=== PATIENT | male | born 1950 | race Caucasian/White ===

== ENCOUNTER → 2016-08-29 | Outpatient (CLI) | payer OTHER, BC | LOC: BHFA 13:15 | PROVIDERS: ATTEND Internal Medicine Cardiovascular Disease | DX: I10 Essential (primary) hypertension (principal); E78.5 Hyperlipidemia, unspecified ==

== ENCOUNTER 2017-04-03 09:19 | Day surgery (SDC) | payer OTHER, BC ==
--- NOTE | 2017-04-03 10:36 | PDGENHP ---
History & Physical Chief Complaint: Left >right leg pain History of Present Illness: Back pain < left leg pain. 11/04 severity. Left leg severely weak, needs walker to ambulate short distances. 5 back operations, most recently November 05, [address] Gibbs in [place]. Allergy: penicillin. Relevant Physical Exam: Abnormal MRI [facility] [place] Cardiorespiratory Assessment: Lungs clear to auscultation. Heart: RRR, no murmur; 84 bpm.
[2017-04-03] MEDS ORDERED: fentaNYL 100 MCG/2 ML INJ IVP PRN (10:37)
[2017-04-03] MEDS ORDERED: PROTAMINE SULFATE 50 MG/5 ML VIAL IVP PRN (10:37)
[2017-04-03] MEDS ORDERED: FLUMAZENIL 0.5 MG/5 ML MDV IVP PRN (10:37)
[2017-04-03] MEDS ORDERED: GLUCAGON HCL 1 MG VIAL IVP PRN (10:37)
[2017-04-03] MEDS ORDERED: MIDAZOLAM 2 MG/2 ML VIAL IVP PRN (10:37)
[2017-04-03] MEDS ORDERED: HEPARIN 10,000 UNIT/10 ML MDV IVP PRN (10:37)
[2017-04-03] MEDS ORDERED: NALOXONE HCL 0.4 MG/ML INJ IVP PRN (10:37)
[2017-04-03] MEDS ORDERED: ALTEPLASE 2 MG VIAL IVP PRN (10:37)
--- NOTE | 2017-04-03 10:39 | PDPROPOC ---
Sedation Plan of Care Sedation Plan of Care: vital signs stable, mental status noted, patient educated of risks, benefits, alternatives, patient can tolerate sedation ASA Classification: ASA 3 Planned drugs: fentanyl, midazolam Mallampati Score: Class 3 Mallampati Reference Image: Patient passed 3-3-2 rule?: Yes
[2017-04-03] MEDS ORDERED: NS 1,000 ML IV SCH (10:45)
[2017-04-03] MEDS ORDERED: MIDAZOLAM 2 MG/2 ML VIAL ONE (10:45)
[2017-04-03] MEDS ORDERED: fentaNYL 100 MCG/2 ML INJ ONE (10:45)
[2017-04-03] MEDS ORDERED: HYDROmorphONE/DILAUDID 2 MG/ML INJ ONE (11:24)
[2017-04-03] MEDS ORDERED: IOPAMIDOL (ISOVUE-M 300) 15 ML VIAL ONE (12:09)
[2017-04-03 12:41] VITALS: PULSE 80; RESP 15
[2017-04-03] MEDS ORDERED: ONDANSETRON 4 MG/2 ML VIAL IVP PRN (13:16)
--- NOTE | 2017-04-03 13:19 | PDRADPN ---
Radiology Procedure Note Date of Procedure: 04/03/17 Radiologist: Rick Lehman Anesthesia: IV Sedation Pre-op Diagnosis: Abnormal L5-S1 Post-op Diagnosis: Same Indication: Possible osteomyelitis Procedure: Core needle biopsy and aspiration, L5-S1 Finding(s): Tissue obtained Inf/Abcess present in the surg proc area at time of surgery?: No EBL: Minimal Complications: 0 Specimen(s): Multiple cores and aspirates obtained for microbiology and histology.
[2017-04-03 13:42] VITALS: O2SAT 93
[2017-04-03 14:07] VITALS: BP 134/78; TEMP 98.3
== END 2017-04-03 14:13 | disposition home or self-care (01) ==
LOC: FIMAGING 09:19
PROVIDERS: ATTEND Radiology Diagnostic Radiology
PROC: BR1 Imaging, Axial Skeleton, Except Skull and Facial Bones, Fluoroscopy (ICD-10-PCS; principal; 2017-04-03 12:26)
PROC: 0QB13ZX Excision of Sacrum, Percutaneous Approach, Diagnostic (ICD-10-PCS; principal; 2017-04-03 12:26)
PROC: 0S9 Lower Joints, Drainage (ICD-10-PCS; principal; 2017-04-03 12:26)
DX: M46.20 Osteomyelitis of vertebra, site unspecified (principal); M46.46 Discitis, unspecified, lumbar region
CPT/HCPCS: J1170; J2250; J3010; Q9967

== ENCOUNTER 2017-04-05 18:38 | Inpatient (IN) | payer OTHER, BC ==
--- NOTE | 2017-04-05 19:20 | EDPHY ---
H & P Time Seen by Provider: 04/05/17 19:15 HPI/ROS: Chief complaint. Possible back infection HPI. 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 He had residual weakness and altered sensation of the left leg. Because of continued pain he had bilateral SI joints injected a weeks ago. There has been increasing concern for infection. Apparently patient had his back aspirated and it grew Pseudomonas. He has had night sweats and weight loss. MRI in early February showed bone marrow edema and osteolysis surrounding the L5-S1 intervertebral disc space with suspicion for hardware failure. It was highly suspicious or osteomyelitis. Patient is here for further evaluation and admission. He knows continuing weakness to his left thigh. He has radicular pain to the left leg. He has bilateral low back pain and hip pain ROS Constitutional. No fever or chills but weight loss and fatigue Eyes. no problems with vision ENT. no sore throat, no nasal drainage Cardiovascular. no chest pain Respiratory. no shortness of breath, no cough Abdominal. no abdominal pain, no nausea/vomiting, no diarrhea . no problems urinating MS. Low back pain with bilateral hip pain. Skin. no rash Lymph. no swollen glands Neuro. Radicular pain left leg and weakness to left thigh Past Medical/Surgical History: Surgery on his back in September. Other medical problems include diabetes, hypertension, dyslipidemia Social History: , nonsmoker, no alcohol Smoking Status: Former smoker Physical Exam: General Appearance: Alert well-developed male moderate distress vital signs are stay Eyes: Pupils equal and round no pallor or injection. ENT, Mouth: Mucous membranes are moist. Respiratory: There are no retractions, lungs are clear to auscultation. Cardiovascular: Regular rate and rhythm. Gastrointestinal: Abdomen is soft and nontender, no masses, bowel sounds normal. Neurological: Awake and alert, sensory and motor exams grossly normal. Skin: Healed surgical sedation is to the low back and abdomen Musculoskeletal: Neck is supple nontender. Discomfort to palpation across the lumbar spine and both SI joints Extremities symmetrical, full range of motion. Psychiatric: Patient is oriented X 3, there is no agitation. Constitutional: Initial Vital Signs Temperature (C) 36.3 C 04/05/17 18:50 Heart Rate 90 04/05/17 18:50 Respiratory Rate 18 04/05/17 18:50 Blood Pressure 141/92 H 04/05/17 18:50 O2 Sat (%) 95 04/05/17 18:50 O2 Delivery Mode Room Air Allergies/Adverse Reactions: Penicillins Allergy (Mild, Verified 04/05/17 18:48) Rash Home Medications: Medication Instructions Recorded Aspirin 81 mg DAILY 04/01/17 CO Q-10 DAILY 04/01/17 Fiber Powder DAILY 04/01/17 Fish Oil 1,000 mg Capsule DAILY 04/01/17 Gabapentin 300 mg DAILY 04/01/17 Iron 325 mg TUTHSA 04/01/17 Lasix 20 mg BID 04/01/17 Laxative 5 mg TID 04/01/17 Lipitor 20 mg DAILY 04/01/17 Melatonin 5 mg HS PRN 04/01/17 Ms Contin 30 mg Q8 PRN 04/01/17 Multi-Vitamin Daily DAILY 04/01/17 Nasal [place] DAILY PRN 04/01/17 Percocet 5-325 mg Tablet Q4 PRN 04/01/17 Protonix 40 mg DAILY 04/01/17 Robaxin 750 mg (*) Q8 PRN 04/01/17 Tylenol 325 mg BID PRN 04/01/17 VITAMIN D DAILY 04/01/17 Voltaren 0.1% (*) DAILY 04/01/17 Zoloft 50mg (*) BID 04/01/17 Etodolac 500 mg PO BID 04/03/17 Azelastine 04/05/17 ETODOLAC 04/05/17 FEXOFENADINE HCL 04/05/17 Medical Decision Making Procedures: IV normal saline. Pain for pain. The blood cultures. Cefepime IV following cultures ED Course/Re-evaluation: Patient continues to have pain after the morphine. He is given IV Dilaudid which controls his pain. After blood cultures are obtained he is given cefepime IV. On re-evaluation patient remained stable. The patient, his , and I discussed imaging and lab results. We discussed treatment plan including recommendation for admission. They expressed understanding and agreement I consulted and discussed the case with Dr. Peng, hospitalist, who agrees to the admission I had previously discussed the case with Dr. Bell , infectious Disease, who recommends admission Differential Diagnosis: Likely this patient has infected hardware in his back. I have considered epidural abscess as well. He had an aspiration 2 days ago that grew Pseudomonas. I have considered sepsis. - Data Points Laboratory Results: Laboratory Results 04/05/17 19:35 04/05/17 19:35 04/05/17 04/05/17 04/05/17 19:50 19:35 19:35 WBC RBC Hgb Hct MCV MCH MCHC RDW Plt Count MPV Neut % (Auto) Lymph % (Auto) [place] % (Auto) Eos % (Auto) Baso % (Auto) Nucleat RBC Rel Count Absolute Neuts (auto) Absolute Lymphs (auto) Absolute Monos (auto) Absolute Eos (auto) Absolute Basos (auto) Absolute Nucleated RBC Immature Gran % Immature Gran # Platelet Estimate Hypochromasia Microcytic Cells ESR PT 14.9 SEC SEC (12.0-15.0) INR 1.15 (0.83-1.16) APTT 32.3 SEC SEC (23.0-38.0) VBG Lactic Acid 1.8 mmol/L mmol/L (0.7-2.1) Sodium 137 mEq/L mEq/L (134-144) Potassium 3.7 mEq/L mEq/L (3.5-5.2) Chloride 98 mEq/L mEq/L (97-110) Carbon Dioxide 24 mEq/l mEq/l (22-31) Anion Gap 15 mEq/L mEq/L (8-16) BUN 12 mg/dL mg/dL (7-23) Creatinine 0.7 mg/dL mg/dL (0.7-1.3) Estimated GFR > 60 Glucose 93 mg/dL mg/dL (70-100) Calcium 10.6 mg/dL H mg/dL (8.5-10.4) Total Bilirubin 0.9 mg/dL mg/dL (0.1-1.4) C-Reactive Protein 31.3 mg/L H mg/L (<10.0) 04/05/17 19:35 WBC 8.86 10^3/uL 10^3/uL (3.80-9.50) RBC 5.77 10^6/uL 10^6/uL (4.40-6.38) Hgb 14.6 g/dL g/dL (13.7-17.5) Hct 45.1 % % (40.0-51.0) MCV 78.2 fL L fL (81.5-99.8) MCH 25.3 pg L pg (27.9-34.1) MCHC 32.4 g/dL g/dL (32.4-36.7) RDW 21.2 % H % (11.5-15.2) Plt Count 246 10^3/uL 10^3/uL (150-400) MPV 8.6 fL L fL (8.7-11.7) Neut % (Auto) 79.6 % H % (39.3-74.2) Lymph % (Auto) 10.5 % L % (15.0-45.0) Lake % (Auto) 8.8 % % (4.5-13.0) Eos % (Auto) 0.5 % L % (0.6-7.6) Baso % (Auto) 0.3 % % (0.3-1.7) Nucleat RBC Rel Count 0.0 % % (0.0-0.2) Absolute Neuts (auto) 7.05 10^3/uL H 10^3/uL (1.70-6.50) Absolute Lymphs (auto) 0.93 10^3/uL L 10^3/uL (1.00-3.00) Absolute Monos (auto) 0.78 10^3/uL 10^3/uL (0.30-0.80) Absolute Eos (auto) 0.04 10^3/uL 10^3/uL (0.03-0.40) Absolute Basos (auto) 0.03 10^3/uL 10^3/uL (0.02-0.10) Absolute Nucleated RBC 0.00 10^3/uL 10^3/uL (0-0.01) Immature Gran % 0.3 % % (0.0-1.1) Immature Gran # 0.03 10^3/uL 10^3/uL (0.00-0.10) Platelet Estimate ADEQUATE (ADEQ) Hypochromasia 2+ H Microcytic Cells 2+ H ESR 9 MM/HR MM/HR (0-20) PT INR APTT VBG Lactic Acid Sodium Potassium Chloride Carbon Dioxide Anion Gap BUN Creatinine Estimated GFR Glucose Calcium Total Bilirubin C-Reactive Protein Medications Given: Discontinued Medications Hydromorphone HCl (Dilaudid) 0.5 mg IVP EDNOW ONE Stop: 04/05/17 20:47 Last Admin: 04/05/17 20:50 Dose: 0.5 mg Cefepime HCl 2 gm/ Dextrose 100 mls @ 200 mls/hr IV EDNOW ONE PRN Reason: Protocol Stop: 04/05/17 20:01 Last Admin: 04/05/17 19:58 Dose: 100 mls Sodium Chloride (Ns) 2,000 mls @ 4,000 mls/hr 30 ml/kg infuse over 30 min ( 2000 ml) IV EDNOW ONE PRN Reason: Protocol Stop: 04/05/17 20:01 Last Admin: 04/05/17 19:49 Dose: 2,000 mls Morphine Sulfate (Morphine) 4 mg IVP EDNOW ONE Stop: 04/05/17 20:07 Last Admin: 04/05/17 20:10 Dose: 4 mg Departure - Departure Disposition: [facility] Acute Clinical Impression: Back pain Qualifiers: Back pain location: low back pain Chronicity: acute Back pain laterality: bilateral Sciatica presence: with sciatica Sciatica laterality: sciatica of left side Qualified Code(s): M54.42 - Lumbago with sciatica, left side Condition: Fair
[2017-04-05] MEDS ORDERED: NS 2,000 ML IV ONE (19:32)
[2017-04-05] MEDS ORDERED: CEFEPIME HCL 2 GM in D5W 100 ML IV ONE (19:32)
[2017-04-05 19:49] LABS: % IMMATURE GRANULYOCYTES 0.3 % (0.0-1.1); ABSOLUTE IMMATURE GRANULOCYTES 0.03 10^3/uL (0.00-0.10); ADD DIFF? NO; ADD MORPH? YES; ADD SCAN? NO; ATYPICAL LYMPHOCYTE FLAG 0 (0-99); FRAGMENT RBC FLAG 0 (0-99); HEMATOCRIT 45.1 % (40.0-51.0); HEMOGLOBIN 14.6 g/dL (13.7-17.5); LEFT SHIFT FLG 0 (0-99); LIPEMIA HEMOLYSIS FLAG 80 (0-99); MEAN CELL HEMOGLOBIN 25.3 pg (27.9-34.1); MEAN CELL HEMOGLOBIN CONCENTR. 32.4 g/dL (32.4-36.7); MEAN CELL VOLUME 78.2 fL (81.5-99.8); MEAN PLATELET VOLUME 8.6 fL (8.7-11.7); PLATELET CLUMPS FLAG 20 (0-99); PLATELET COUNT 246 10^3/uL (150-400); RED BLOOD CELL COUNT 5.77 10^6/uL (4.40-6.38)
[2017-04-05 19:59] LABS: ANION GAP 15 mEq/L (8-16); BILIRUBIN,TOTAL 0.9 mg/dL (0.1-1.4); C-REACTIVE PROTEIN 31.3 mg/L (<10.0); CALCIUM 10.6 mg/dL (8.5-10.4); CARBON DIOXIDE 24 mEq/l (22-31); CHLORIDE 98 mEq/L (97-110); CREATININE 0.7 mg/dL (0.7-1.3); GLOMERULAR FILTRATION RATE > 60; GLUCOSE 93 mg/dL (70-100); POTASSIUM 3.7 mEq/L (3.5-5.2); SODIUM 137 mEq/L (134-144)
[2017-04-05 20:01] LABS: INR 1.15 (0.83-1.16); PROTIME(PATIENT) 14.9 SEC (12.0-15.0)
[2017-04-05 20:02] LABS: APTT 32.3 SEC (23.0-38.0)
[2017-04-05 20:04] LABS: RED CELL DISTRIBUTION WIDTH 21.2 % (11.5-15.2)
[2017-04-05 20:05] LABS: SEDIMENTATION RATE 9 MM/HR (0-20)
[2017-04-05 20:21] LABS: HYPOCHROMIA 2+; MICROCYTES 2+; PLATELET ESTIMATE ADEQUATE (ADEQ)
[2017-04-05] MEDS ORDERED: HYDROmorphONE/DILAUDID 1 MG/ML INJ IVP ONE (20:46)
[2017-04-05] MEDS ORDERED: GADOBUTROL 10 ML VIAL IVP ONE (22:01)
[2017-04-05] MEDS ORDERED: ONDANSETRON 4 MG/2 ML VIAL IVP PRN (22:20)
[2017-04-05] MEDS ORDERED: ONDANSETRON DISINTEGRATING 4 MG TAB PO PRN (22:20)
[2017-04-05] MEDS ORDERED: HYDROmorphONE/DILAUDID 1 MG/ML INJ ONE (22:43)
[2017-04-05] MEDS: HYDROmorphONE/DILAUDID 1 MG/ML INJ IVP PRN (22:45)
[2017-04-06] MEDS: oxyCODONE IR 5 MG TAB PO PRN ×3 (00:18→14:49)
--- NOTE | 2017-04-06 00:31 | PDGENHP ---
History and Physical - Chief Complaint Back pain - History of Present Illness 67 yo M w/ complicated recent surgical course presents at request of infectious disease team. Patient underwent several spinal surgeries in September of this year. This process was complicated and required a revision on November 05 due to pain and leg weakness resulting from the surgery. These procedures were performed by Dr. Gibbs in [place]. Since, he has continued to struggle with ongoing back pain and L leg weakness. As a result of ongoing symptoms, he has had several MRI 's, the most recent of which showed concern for possible osteomyelitis in L5- S1 region. He had a core needle biopsy and aspiration of this area on 04/03. Gram stain from this resulted with Pseudomonas so patient was asked to come in for further evaluation. History Information - Allergies/Home Medication List Allergies/Adverse Reactions: Penicillins Allergy (Mild, Verified 04/05/17 18:48) Rash Home Medications: Aspirin 81 mg DAILY 04/01/17 [Last Taken 04/01/17] CO Q-10 DAILY 04/01/17 [Last Taken 04/02/17] Fiber Powder DAILY 04/01/17 [Last Taken 04/02/17] Fish Oil 1,000 mg Capsule DAILY 04/01/17 [Last Taken 04/03/17] Gabapentin 300 mg DAILY 04/01/17 [Last Taken 04/02/17] Iron 325 mg TUTHSA 04/01/17 [Last Taken 04/02/17] Lasix 20 mg BID 04/01/17 [Last Taken 04/02/17] Laxative 5 mg TID 04/01/17 [Last Taken 04/02/17] Lipitor 20 mg DAILY 04/01/17 [Last Taken 04/02/17] Melatonin 5 mg HS PRN 04/01/17 [Last Taken Unknown] Ms Contin 30 mg Q8 PRN 04/01/17 [Last Taken 04/03/17 06:00] Multi-Vitamin Daily DAILY 04/01/17 [Last Taken 04/02/17] Nasal [place] DAILY PRN 04/01/17 [Last Taken 04/03/17] Percocet 5-325 mg Tablet Q4 PRN 04/01/17 [Last Taken 04/03/17 04:00] Protonix 40 mg DAILY 04/01/17 [Last Taken 04/03/17 04:00] Robaxin 750 mg (*) Q8 PRN 04/01/17 [Last Taken 04/02/17] Tylenol 325 mg BID PRN 04/01/17 [Last Taken 04/02/17] VITAMIN D DAILY 04/01/17 [Last Taken 04/02/17] Voltaren 0.1% (*) DAILY 04/01/17 [Last Taken 04/02/17] Zoloft 50mg (*) BID 04/01/17 [Last Taken 04/03/17 06:00] Etodolac 500 mg PO BID 04/03/17 [Last Taken 04/02/17] Azelastine 04/05/17 [Last Taken Unknown] ETODOLAC 04/05/17 [Last Taken Unknown] FEXOFENADINE HCL 04/05/17 [Last Taken Unknown] I have personally reviewed and updated: family history, medical history - Past Medical History arthritis, diabetes type 2, hypertension - Surgical History Reports: spinal surgery Additional surgical history: September and October 2016 - Family History Positive for: cancer, diabetes type II - Social History Smoking Status: Former smoker Review of Systems Review of Systems: ROS: 10pt was reviewed & negative except for what was stated in HPI & below Physical Exam Physical Exam: Temp Pulse Resp BP Pulse Ox 36.7 C 80 16 168/89 H 95 04/05/17 23:32 04/05/17 23:32 04/05/17 23:32 04/05/17 23:32 04/05/17 23:32 Constitutional: no apparent distress, not in pain Eyes: PERRL, EOMI Ears, Nose, Mouth, Throat: moist mucous membranes, no oral mucosal ulcers Cardiovascular: regular rate and rhythym, no murmur, rub, or gallop Respiratory: no respiratory distress, no rales or rhonchi Gastrointestinal: normoactive bowel sounds, soft, non-tender abdomen Skin: warm, normal color Musculoskeletal: full muscle strength, no muscle tenderness, no joint effusions Neurologic: AAOx3, CN II-XII Intact Psychiatric: interacting appropriately, not anxious Lab Data & Imaging Review 04/05/17 19:35 04/05/17 19:35 WBC 8.86 10^3/uL (3.80-9.50) 04/05/17 19:35 RBC 5.77 10^6/uL (4.40-6.38) 04/05/17 19:35 Hgb 14.6 g/dL (13.7-17.5) 04/05/17 19:35 Hct 45.1 % (40.0-51.0) 04/05/17 19:35 MCV 78.2 fL (81.5-99.8) L 04/05/17 19:35 MCH 25.3 pg (27.9-34.1) L 04/05/17 19:35 MCHC 32.4 g/dL (32.4-36.7) 04/05/17 19:35 RDW 21.2 % (11.5-15.2) H 04/05/17 19:35 Plt Count 246 10^3/uL (150-400) 04/05/17 19:35 MPV 8.6 fL (8.7-11.7) L 04/05/17 19:35 Neut % (Auto) 79.6 % (39.3-74.2) H 04/05/17 19:35 Lymph % (Auto) 10.5 % (15.0-45.0) L 04/05/17 19:35 [place] % (Auto) 8.8 % (4.5-13.0) 04/05/17 19:35 Eos % (Auto) 0.5 % (0.6-7.6) L 04/05/17 19:35 Baso % (Auto) 0.3 % (0.3-1.7) 04/05/17 19:35 Nucleat RBC Rel Count 0.0 % (0.0-0.2) 04/05/17 19:35 Absolute Neuts (auto) 7.05 10^3/uL (1.70-6.50) H 04/05/17 19:35 Absolute Lymphs (auto) 0.93 10^3/uL (1.00-3.00) L 04/05/17 19:35 Absolute Monos (auto) 0.78 10^3/uL (0.30-0.80) 04/05/17 19:35 Absolute Eos (auto) 0.04 10^3/uL (0.03-0.40) 04/05/17 19:35 Absolute Basos (auto) 0.03 10^3/uL (0.02-0.10) 04/05/17 19:35 Absolute Nucleated RBC 0.00 10^3/uL (0-0.01) 04/05/17 19:35 Immature Gran % 0.3 % (0.0-1.1) 04/05/17 19:35 Immature Gran # 0.03 10^3/uL (0.00-0.10) 04/05/17 19:35 Platelet Estimate ADEQUATE (ADEQ) 04/05/17 19:35 Hypochromasia 2+ H 04/05/17 19:35 Microcytic Cells 2+ H 04/05/17 19:35 ESR 9 MM/HR (0-20) 04/05/17 19:35 PT 14.9 SEC (12.0-15.0) 04/05/17 19:35 INR 1.15 (0.83-1.16) 04/05/17 19:35 APTT 32.3 SEC (23.0-38.0) 04/05/17 19:35 VBG Lactic Acid 1.8 mmol/L (0.7-2.1) 04/05/17 19:50 Sodium 137 mEq/L (134-144) 04/05/17 19:35 Potassium 3.7 mEq/L (3.5-5.2) 04/05/17 19:35 Chloride 98 mEq/L (97-110) 04/05/17 19:35 Carbon Dioxide 24 mEq/l (22-31) 04/05/17 19:35 Anion Gap 15 mEq/L (8-16) 04/05/17 19:35 BUN 12 mg/dL (7-23) 04/05/17 19:35 Creatinine 0.7 mg/dL (0.7-1.3) 04/05/17 19:35 Estimated GFR > 60 04/05/17 19:35 Glucose 93 mg/dL (70-100) 04/05/17 19:35 Calcium 10.6 mg/dL (8.5-10.4) H 04/05/17 19:35 Total Bilirubin 0.9 mg/dL (0.1-1.4) 04/05/17 19:35 C-Reactive Protein 31.3 mg/L (<10.0) H 04/05/17 19:35 Assessment & Plan Assessment: 67 yo M with hx of multiple complications presents after gram stain from recent spinal aspirate is growing Pseudomonas. Plan: 1. Hx of spinal hardware placement c/b possible infection - Core needle biopsy and aspirate performed (L5/S1) by Dr. Lehman on 04/03. Gram stain from this sample is growing Pseudomonas aeurigonosa. Patient does not have any systemic symptoms of infection at this time. CRP elevated at 31. - Repeat lumbar spine MRI - Blood cultures obtained - Cefepime 2g IV q8h - Infectious disease consult - Will maintain NPO pending results of MRI in case he needs surgical intervention 2. Chronic back pain - As a result of above procedures; takes Ms Contin 30 mg q8h as well as percocet 5/325 mg PRN. 3. T2DM - Patient claims this is diet controlled and does not take medications. Diet - NPO @ PR Code - Full Ppx - SCDs Dispo - Admit to inpatient status noting need for further evaluation and IV antibiotics.
[2017-04-06 05:13] LABS: % IMMATURE GRANULYOCYTES 0.4 % (0.0-1.1); ABSOLUTE IMMATURE GRANULOCYTES 0.03 10^3/uL (0.00-0.10); ADD DIFF? NO; ADD MORPH? YES; ADD SCAN? NO; ATYPICAL LYMPHOCYTE FLAG 0 (0-99); FRAGMENT RBC FLAG 0 (0-99); HEMATOCRIT 39.3 % (40.0-51.0); HEMOGLOBIN 12.3 g/dL (13.7-17.5); LEFT SHIFT FLG 0 (0-99); LIPEMIA HEMOLYSIS FLAG 80 (0-99); MEAN CELL HEMOGLOBIN 24.7 pg (27.9-34.1); MEAN CELL HEMOGLOBIN CONCENTR. 31.3 g/dL (32.4-36.7); MEAN CELL VOLUME 79.1 fL (81.5-99.8); MEAN PLATELET VOLUME 8.5 fL (8.7-11.7); PLATELET CLUMPS FLAG 0 (0-99); PLATELET COUNT 185 10^3/uL (150-400); RED BLOOD CELL COUNT 4.97 10^6/uL (4.40-6.38)
[2017-04-06 05:17] LABS: RED CELL DISTRIBUTION WIDTH 20.3 % (11.5-15.2)
--- NOTE | 2017-04-06 05:30 | PDMN ---
Medical Necessity Medical necessity: C/M review: est. > 2 MN LOS for eval and TX of acute possible L5/S1 infection, 04/03/2016 L5/S1 core needle biopsy and aspirate gram stain growing out Pseudomonas aeuriginosa requiring planned infectious disease consult, ongoing IV Cefepime, IV Morphine, further evaluation, comorbid chronic back pain, type 2 diabetes, history of several spinal surgeries 09/2016, revision surgery 11/05/2016, recent lumbar MRI showed concern for possible osteomyelitis in L5/S1 region per H/P.
[2017-04-06 05:35] LABS: ANION GAP 10 mEq/L (8-16); CALCIUM 9.6 mg/dL (8.5-10.4); CARBON DIOXIDE 24 mEq/l (22-31); CHLORIDE 105 mEq/L (97-110); CREATININE 0.6 mg/dL (0.7-1.3); GLOMERULAR FILTRATION RATE > 60; GLUCOSE 90 mg/dL (70-100); POTASSIUM 3.6 mEq/L (3.5-5.2); SODIUM 139 mEq/L (134-144)
[2017-04-06] MEDS: CEFEPIME HCL 2 GM in D5W 100 ML IV SCH ×3 (05:42→22:40)
[2017-04-06] MEDS: HYDROmorphONE/DILAUDID 1 MG/ML INJ IVP PRN (05:42)
[2017-04-06 05:58] LABS: MICROCYTES 2+
[2017-04-06 05:59] LABS: ELLIPTOCYTES 1+; PLATELET ESTIMATE ADEQUATE (ADEQ)
[2017-04-06] MEDS ORDERED: NON-FORMULARY NEW DRUG (Melatonin [Melatonin 5 Mg] 5 MG) PO PRN (09:47)
[2017-04-06] MEDS ORDERED: LOPERAMIDE HCL 2 MG CAP PO PRN (09:47)
--- NOTE | 2017-04-06 09:52 | GCON ---
[f rep st] CONSULTATION CONSULTATION/HISTORY AND PHYSICAL CHIEF COMPLAINT: Back pain. HISTORY OF PRESENT ILLNESS: The patient is a 67-year-old male who has a complicated history of recen t spinal surgery. He is a patient of Dr. Hernandez. His surgical course presented with 3 initial lindsey geries as well as a 4th surgery for revision. Recently, he was diagnosed with pseudomonas after an a spiration was performed at S1. His history is that he underwent spine surgery starting in September year. He presented at that time with lower extremity pain and underwent, on 10/22, an ALIF. On 10/23, he underwent a DLIF as they were unsuccessful in getting a level completed in the ALIF procedur e the day before. On 10/25, he was followed up with a posterior fusion construct. He continued to h ave miserable pain and was taken back on 11/05/2016 for revision through the posterior approach. The patient has been dealing with horrible pain, mainly in the left lower extremity and right hip. The surgery itself was not successful per patient's account. He has continued to struggle with ongoing b ack pain and left leg weakness, as well as right hip pain. He is unable to ambulate well or long dis tance without the use of a walker. He has had several MRIs. The most recent MRI was performed, whic h showed possible osteomyelitis at L5-S1 region. He had a core needle biopsy with Interventional Rad iology, and the Gram stain resulted in pseudomonas culture. The patient was admitted to the hospital to the internal medicine service and Dr. Bell from Infectious Disease is following as well. The pa tient denies any loss of bowel or bladder control. He is able to void appropriately, but does state that he has not had an erection since prior to surgery. He denies any upper extremity complaints suc h as numbness, tingling or weakness. PAST MEDICAL HISTORY: 1. Significant for arthritis. 2. Diabetes type 2. 3. Hypertension. SURGICAL HISTORY: Spinal surgery. Initial ALIF on 10/22, followed by a DLIF on 10/23, TLIF on 10/25 , and revision on 11/05/2016. ALLERGIES: To penicillin. MEDICATIONS: Prior to admission: 1. Aspirin. 2. CoQ10. 3. Fiber powder. 4. Fish oil. 5. Gabapentin. 6. Iron. 7. Lasix. 8. Laxative. 9. Lipitor. 10. Melatonin. 11. MS Contin. 12. Multivitamin. 13. Nasal spray as needed. 14. Percocet. 15. Protonix. 16. Robaxin. 17. Tylenol. 18. Vitamin D. 19. Voltaren. 20. Zoloft. 21. Etodolac. 22. Azelastine. 23. Fexofenadine. FAMILY HISTORY: Positive for cancer and diabetes type 2. SOCIAL HISTORY: Patient is . He lives in the [place] area, is 67 years of age. His , Aixa quiñones, is at the bedside. He is a nonsmoker but did smoke in the past. REVIEW OF SYSTEMS: A 10-point review of systems was reviewed and negative except for stated in HPI a nd below. PHYSICAL EXAMINATION: GENERAL: This is an awake, alert, oriented male, in no acute distress. VITAL SIGNS: Most recent blood pressure 167/67, MAP of 100, 84 heart rate, 16 respirations, 99% on 2 L na walker cannula, temperature 36.7. HEENT: Head is normocephalic, atraumatic. Pupils are equal, round, reactive to light. EOMI. Full visual palmer by confrontation. Ears are patent. Nose is patent. N ANGELA: Soft and supple. Full range of motion in flexion, extension, lateral bending, and rotation. R ESPIRATORY: Deferred. CARDIAC: Deferred. ABDOMEN: Soft, nontender. No peritoneal signs. : D eferred. RECTAL: Deferred. NEURO: Patient is awake, alert, oriented to name, place, location, manda e, time, and situation. Memory is intact to immediate, past, and current events. Speech: No aphasi a, dysarthria, dysphonia. Cranial nerves 2-12 grossly intact. Motor: Patient has 5/5 strength in b ilateral lower extremities and upper extremities to include deltoids, biceps, triceps, brachioradiali s, wrist flexors, extensors, telegraph printer mechanic, intrinsic fingers, iliopsoas, quadriceps, hamstring, plantarflexio n, dorsiflexion, EHL testing with the exception of left quad and left iliopsoas at 3+/5. Sensation i s grossly intact to light touch throughout all dermatome distributions in upper and lower extremities . Negative straight leg raise. Negative SANJEEV test. Reflexes of biceps, triceps, brachioradialis, knee jerks, and ankle jerk are 2+/4. Toes are downgoing bilaterally. Steve negative. Babinski n egative. No evidence of clonus. MEDICAL DECISION MAKING/DIAGNOSTIC STUDIES: Laboratory tests obtained 04/06/2017 shows a white count of 7.79 with an H and H of 12.3 and 39.3, with a platelet count of 185. Coags on 04/05/2017 show a PT of 14.9, INR of 1.15, PTT of 32.3. Chemistry on 04/06/2017: Sodium 139, potassium 3.6, chloride 105, CO2 24, BUN 9, creatinine 0.6, and glucose of 90. MRI of the lumbar spine obtained 04/05/2017 shows extensive postoperative changes, persistent inflamm atory changes, suspect involving L5-S1 disk as well as the S1 vertebral body. Hardware is noted. No definite epidural abscess was noted, but findings consistent with infection. Needle biopsy shows pseudomonas. ASSESSMENT: 1. Lumbar spine surgery performed by outside physician Dr. Hernandez; on 10/22, anterior lumbar inter body fusion, 10/23, direct lateral fusion, 629, transforaminal lumbar interbody fusion, 11/05, robin ion of posterior construct. 2. Needle biopsy performed showing S1 pseudomonas infection. 3. Chronic low back pain and lower extremity pain. 4. Multiple medical conditions, please see list above. PLAN AND DISCUSSION: The patient is a 67-year-old gentleman who will be seen by Dr. Katz and myself . History is that he underwent extensive lumbar surgery with Dr. Hernandez at [facility] on 10/22. He underwent an ALIF 1 day later. On 10/23, he underwent a DLIF procedure. On 10/25, allison quick underwent a TLIF and posterior fusion, followed on 11/05 with a revision procedure. The patient pr esented multiple times to Dr. Hernandez. He is on pain medication, and this has not helped his left l ower extremity weakness and his right hip pain. The weakness that he has is pretty significant of le ft iliopsoas and left quad. He uses a walker for ambulation at this time. Dr. Bell from Infectious Disease consulted Neurosurgery this a.m. for us to get involved in his care. Internal Medicine has admitted him. Dr. Katz and myself will review his images later this a.m., and the patient will be s een by Dr. Katz to develop a final plan accordingly. The patient understands and agrees. All quest ions and concerns were answered. /[id number]/MODL
[2017-04-06] MEDS ORDERED: NON-FORMULARY NEW DRUG (Cholecalciferol (Vitamin D3) [Vitamin D3] 5,000 UNIT) PO SCH (10:00)
[2017-04-06] MEDS ORDERED: MELATONIN 3 MG TAB PO PRN (10:03)
--- NOTE | 2017-04-06 10:07 | GCON ---
[f rep st] CONSULTATION INFECTIOUS DISEASE CONSULTATION DATE OF CONSULTATION: 04/06/2017 REFERRING PHYSICIAN: Vicente Vasques MD REASON FOR CONSULTATION: To assist in the management of this 67-year-old male with postoperative back infection. HISTORY OF PRESENT ILLNESS: The patient is a very pleasant 67-year-old male whose previous medical history is notable for the followin. Hyperlipidemia. 2. Type 2 diabetes mellitus. 3. Hypertension. 4. Degenerative joint disease. PREVIOUS SURGICAL HISTORY: 1. Partial left knee arthroplasty, August 2011. 2. Cholecystectomy, 1998. 3. Cervical fusion C5 through C7, November 2013. 4. History of TURP, 2013. 5. Cervical fusion of C4-C5, February 2015. Regarding his present issues, the patient has been having discomfort in his lower back for quite some time. He states that he developed pain down his right leg, and refractory low back pain. Because of this, he saw Dr. Dukes of Neurosurgery in [place]. He was admitted to [facility] and underwent fusion of L2-S1, on October 22, , , and then revision on November 05. He had multiple surgeries, as apparently the initial approach was anterior, then from the side, and then ultimately hardware was placed in the back on October 25, with some screws that were revised on November 05. The patient's tells me he had a complicated hospital course, with a colonic ileus secondary to narcotics, and persistent hypotension of unclear etiology. He ultimately went to rehabilitation for 4 weeks after a 3-week hospitalization. After being discharged home, the patient's states that he was persistently weak, with left lower extremity weakness. His left leg "gave out" at home, and he fell. He was referred to Dr. Sharif for further evaluation of low blood pressure, and then saw Dr. Steele of Rheumatology who suggested infectious disease consult. The patient denies any fevers at home or shaking chills, but has had, after the surgery, persistent left lower extremity weakness, and ongoing pain. The patient states that his back pain and left-sided pain has not improved after surgery. He also reports a 40-pound weight loss over the past several months, as he has not been hungry. He denies any bowel or bladder symptoms, but has not had an erection for quite some time. Aside from what is listed above, 10 systems are reviewed and all are negative. The patient saw my colleague, Dr. Maritza Millan, in the office on March 28. She arranged for a biopsy of his low back, and this was performed on April [address] Lehman in Interventional Radiology. The patient underwent a core needle biopsy with aspiration, L5-S1. I was asked by Dr. Millan to follow up on the patient's microbiology this weekend. Yesterday afternoon, when I checked his culture results, the patient was showing rare Pseudomonas aeruginosa. I then called the patient and explained the situation to he and his , and asked them to come in to [facility] for further evaluation and treatment. The patient presented to the emergency room without fever. Blood cultures were drawn. He underwent a repeat MRI which I reviewed with Dr. Pablo. This revealed no evidence of epidural abscess, but showed extensive postoperative changes with inflammatory changes involving L5-S1 disk, as well as S1 vertebral body. He was started on cefepime at my request. In speaking with the patient today, he is very frustrated and his is tearful. He is unable to move his left leg. Please see above regarding review of systems. PREVIOUS MEDICAL HISTORY: Is outlined above. ALLERGIES: Penicillin: Talking with the patient, he states that while he was in [employer] and on penicillin orally, he "passed out" in gym class. He also developed a mild rash at that time. No throat closure. He has not taken penicillins to his knowledge since then or cephalosporins. MEDICATIONS: Presently include cefepime 2 g IV q.8 hours, Zofran p.r.n., oxycodone, morphine, and Dilaudid p.r.n. Prior to admission, he was on Lasix 40 mg a day, Neurontin 300 mg daily, Robaxin 750 mg q.8 hours, MS Contin, Percocet, melatonin, Zoloft 100 mg a day, Protonix 40 mg a day, Lipitor 20 mg daily, baby aspirin 81 mg daily, Imodium as needed, vitamin D 5000 international units daily, multivitamin, and vitamin C. SOCIAL HISTORY: The patient formally worked in [employer]. He has a supportive . They live in [place]. No animals. A history of distant tobacco use, none in 20 years. No alcohol or illicit substances. No recent travel. No water exposure or other unusual exposures. FAMILY HISTORY: Notable for a mother who of cardiovascular disease and a father who of complications related to diabetes. They have 2 grown children who are well. PHYSICAL EXAMINATION: VITAL SIGNS: T-current is 36.7, T-max same, heart rate 84, blood pressure 167/67. GENERAL: The patient is lying in bed, appears tired , but no apparent distress. HEENT: Atraumatic, normocephalic. Pupils equal, round, and reactive to light. Extraocular movements are intact. No conjunctival injection. No icterus or petechiae. Mucous membranes moist. No oral lesions noted. Dentition in fair repair. Trachea is midline. NECK: The patient has a well-healed horizontal scar on his lower neck, consistent with prior history of cervical fusion. Trachea is midline. No cervical or supraclavicular lymphadenopathy. CARDIOVASCULAR: S1, S2. Occasional extra beat. No rubs, gallops, or murmurs. LUNGS: No increased respiratory effort. Clear to auscultation bilaterally with no rales, rhonchi, or wheeze. ABDOMEN: Soft. No organomegaly or tenderness to palpation. Well-healed midline abdominal and vertical abdominal incision. EXTREMITIES: There is some wasting of his quadriceps muscle on the left hip. The patient has onychomycosis of his right great toenail and is missing his left great toenail. No clubbing, cyanosis, or edema. SKIN: Warm and dry. No rashes. NEUROLOGIC: He is alert and oriented x3. The patient is unable to flex his left hip. LABORATORY DATA: Microbiologic data: Back aspirate on April 03 is growing rare Pseudomonas aeruginosa. Sensitivities are pending. Blood cultures performed on March 28, no growth so far. Repeat blood culture pending. AFB stain on April 03 is negative. Fungal culture is also pending. White blood cell count is 7.7, hematocrit 39, platelet count of 185. BUN and creatinine 9/0.6. Liver function tests on March 28 are within normal limits. C-reactive protein of 31.3, ESR of 9. RADIOGRAPHIC DATA: As outlined above with lumbar spine MRI revealing abnormalities in the disks between L5 and S1, as well as the S1 vertebral body without epidural abscess. 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 MRI is thankfully negative for epidural abscess or spine instability. PLAN: 1. I have asked REBECA Donohue of Neurosurgery, to see the patient. Unfortunately, it appears that the hardware is unable to be removed at this point in time. I am concerned about his persistent left leg weakness; will await neurosurgical recommendations. 2. Continue Cefepime 2 g IV q.8 hours. Discussed with patient and his the need for a PICC line moving forward and 8 weeks of IV antibiotics, followed by oral suppression, given the fact that we cannot eradicate this infection with the hardware in place. They understand this. 3. Blood cultures are pending, but have previously been negative on March 28. 4. We will also have Nutrition consult and Physical Therapy see him. Thank you very much for consulting Infectious Disease. We will continue to follow this patient with you. /[id number]/MODL MTDD
[2017-04-06] MEDS: PANTOPRAZOLE SODIUM 40 MG TAB PO SCH (10:27)
[2017-04-06] MEDS: ATORVASTATIN CALCIUM 20 MG TAB PO SCH (10:27)
[2017-04-06] MEDS: morphINE SR 30 MG TAB PO SCH ×2 (10:27→17:59)
[2017-04-06] MEDS: amLODIPine BESYLATE 5 MG TAB PO SCH (10:27)
[2017-04-06] MEDS: METHOCARBAMOL 750 MG TAB PO SCH ×2 (10:28→17:59)
[2017-04-06] MEDS: SERTRALINE HCL 50 MG TAB PO SCH ×2 (10:28→20:28)
[2017-04-06] MEDS: DICLOFENAC SODIUM 1% 100 GM GEL TP SCH (11:09)
[2017-04-06] MEDS: AZELASTINE NASAL MDI EACHNARE SCH ×2 (11:19→22:40)
--- NOTE | 2017-04-06 16:46 | ASMTCMCOM ---
CM Note CM Note Notes: Reviewed chart.Pt admitted w/back pain and post/operative back infection, has complicated hx of recent spinal surgery. Pt will likely need extermination supervisor IV ABX's, blood cultures pending. I met w/pt and to discuss. Pt said he would not be able to administer IV ABX's but seemed open to it. They have used [facility] in past and would be fine to use them again. PT recommendation pending, will need to make sure pt is safe for dc home. Referral sent to [facility] so we can check benefits tomorrow. Pt was at rehab this past summer after surgery. Date Signed: 04/06/2017 04:46 PM Electronically Signed By:Jinny Lopez RN
--- NOTE | 2017-04-06 17:50 | HOSPPROG ---
Hospitalist Progress Note Assessment/Plan: DIAGNOSES: -diskitis and osteomyelitis in lumbar spine at site of previous surgeries with hardware in place -diabetes mellitus type 2 currently well controlled -hypertension currently well controlled -mild microcytic anemia of uncertain chronicity; high normal red blood cell count indicates that this could potentially be due to a chronic hemoglobin abnormality but will need to check him for possible iron deficiency PLANS: I reviewed the patient's care plan with Dr. Bell Continue current antibiotics to cover Pseudomonas Continue current diabetes and hypertension management, monitor both closely Iron studies ordered for tomorrow (new problem w w/u ordered) High risk patient with spine infection with hardware in place, likely unable to remove hardware at this time SUBJECTIVE: The patient has ongoing lumbar back pain unchanged over the last couple days, no new radicular symptoms No chills or sweats Has noticed no bleeding OBJECTIVE Vitals reviewed: Stable overall no fever right now Exam: alert oriented, looks mildly to moderately uncomfortable skin warm dry color ok resps not labored lungs clear BSs heart regular abd soft nondistended nontender, bowel sounds present limbs warm, no edema iv site ok Laboratory data: Does have a mild microcytic anemia. I have no laboratory data available from before this month looking back at his old records here Objective: Vital Signs Temp Pulse Resp BP Pulse Ox 36.9 C 87 16 119/62 94 04/06/17 16:00 04/06/17 16:00 04/06/17 16:00 04/06/17 16:00 04/06/17 16:00 Laboratory Results 04/06/17 05:02 04/06/17 05:02 04/05/17 04/06/17 04/07/17 06:59 06:59 06:59 Intake Total 2700 550 Output Total 775 800 Balance 1925 -250 PT 14.9 SEC (12.0-15.0) 04/05/17 19:35 INR 1.15 (0.83-1.16) 04/05/17 19:35 ICD10 Worksheet Patient Problems: Problems Problem Status Onset Back pain Acute
[2017-04-06] MEDS: OXYCODONE/APAP 5/325 TAB PO PRN (20:27)
[2017-04-06] MEDS: GABAPENTIN 300 MG CAP PO SCH (20:28)
[2017-04-07] MEDS: morphINE SR 30 MG TAB PO SCH ×3 (01:34→17:54)
[2017-04-07] MEDS: METHOCARBAMOL 750 MG TAB PO SCH ×3 (01:34→17:54)
[2017-04-07] MEDS: CEFEPIME HCL 2 GM in D5W 100 ML IV SCH ×3 (06:15→21:00)
[2017-04-07] MEDS: OXYCODONE/APAP 5/325 TAB PO PRN (06:18)
--- NOTE | 2017-04-07 08:15 | NEUSURGPN ---
Assessment/Plan: 67 yr old s/p L2-S1 with outside surgeon in September/October 2016 (involving 4 surgeries) left quad, IP weakness/atrophy since surgery Plan: -MRI lumbar spine demonstrated concerns for infection at L5-S1 -Biopsy of S1 screw resulted in pseudomonas -Patient scheduled to get PICC placement today -Appreciate ID input on antbx treatment plan -Severe left quad weakness with atrophy which likely is from nerve damage from his previous DLIF surgery -Will continue to follow -PT/OT -Please call neurosurgery with any questions/concerns -Discussed patient with Dr Katz Subjective: Patient has continued left quad weakness, resting in bed Objective: AxO x3 PERRLA 5/5 BUE 5/5 BLE except left quad and left IP 3/5 Sensation intact to light touch BLE Neuro Check Frequency: per routine Urinary Catheter in Place: No - Physician Discussed Patient with : [facility] Physical Exam - Vitals, I&O, Labs I and O 04/06/17 04/07/17 04/08/17 05:59 05:59 05:59 Intake Total 2700 1950 Output Total 775 1425 325 Balance 1925 525 -325 Weight 133.1 kg Intake: Oral (ml) 700 1850 IV Infused (ml) 2000 100 Cefepime HCl 2 gm In D5w 100 100 ml @ 200 mls/hr IV Q8HRS [facility] Rx#:[id number] Output: Urine (ml) 775 1425 325 Urinal 575 1425 325 Other: Intake Quantity Yes Sufficient Number of Voids Urinal 1 Vital Signs Temp Pulse Resp BP Pulse Ox 37.0 C 80 16 150/79 H 94 04/06/17 23:51 04/06/17 23:51 04/06/17 23:51 04/06/17 23:51 04/06/17 23:51 Laboratory Results 04/06/17 05:02 04/06/17 05:02 ICD10 Worksheet Patient Problems: Problems Problem Status Onset Back pain Acute
[2017-04-07] MEDS: ASPIRIN 81 MG CHEWABLE TAB PO SCH (08:29)
[2017-04-07] MEDS: ATORVASTATIN CALCIUM 20 MG TAB PO SCH (08:29)
[2017-04-07] MEDS: PANTOPRAZOLE SODIUM 40 MG TAB PO SCH (08:30)
[2017-04-07] MEDS: FUROSEMIDE 20 MG TAB PO SCH (08:30)
[2017-04-07] MEDS: CHOLECALCIFEROL VIT D3 1,000 UNITS TAB PO SCH (08:31)
[2017-04-07] MEDS: amLODIPine BESYLATE 5 MG TAB PO SCH (08:31)
[2017-04-07] MEDS: FERROUS SULFATE 325 MG TAB PO SCH (08:32)
[2017-04-07] MEDS: CETIRIZINE 10 MG TAB PO SCH (08:32)
[2017-04-07] MEDS: SERTRALINE HCL 50 MG TAB PO SCH ×2 (08:32→20:56)
[2017-04-07] MEDS: POLYETHYLENE GLYCOL 3350 17 GM PKT PO SCH (08:32)
[2017-04-07] MEDS: OMEGA-3 FATTY ACIDS 1,000 MG CAP PO SCH (08:32)
[2017-04-07] MEDS: MULTIVITAMINS 1 EACH TAB PO SCH (08:32)
[2017-04-07] MEDS: AZELASTINE NASAL MDI EACHNARE SCH ×2 (08:40→21:02)
[2017-04-07] MEDS: DICLOFENAC SODIUM 1% 100 GM GEL TP SCH (08:42)
[2017-04-07] MEDS ORDERED: NON-FORMULARY NEW DRUG (Fexofenadine Hcl [Fexofenadine Hcl] 180 MG) PO SCH (09:00)
[2017-04-07] MEDS: ACETAMINOPHEN 325 MG TAB PO PRN ×2 (12:13→20:56)
--- NOTE | 2017-04-07 13:01 | HOSPPROG ---
Hospitalist Progress Note Assessment/Plan: Patient is a 67-year-old male who underwent several spine surgeries in September of this year. He required a revision in October due to pain and leg weakness resulting from the surgery. These procedures were performed @ [facility]. He had several MRIs with most recent one concerning for possible osteomyelitis in the L5-S1 region. He was admitted for further care. Today is my 1st encounter with the patient. Chart reviewed. * diskitis and osteomyelitis with hardware in place -antibiotics to treat and cover Pseudomonas -Cefepime * diabetes mellitus type 2 * hypertension -bp a bit elevated * microcytic anemia -iron studies ordered *dvt prophylaxis: initiate LMWH since he will not be having surgery at this time Subjective: Alireza says he has ongoing numbness and weakness in his left thigh area/ describes that his left leg tuyet easily. Objective: Vital Signs Temp Pulse Resp BP Pulse Ox 36.1 C 80 12 146/84 H 94 04/07/17 08:00 04/07/17 08:00 04/07/17 08:00 04/07/17 08:31 04/07/17 08:00 Laboratory Results 04/06/17 05:02 04/06/17 05:02 04/06/17 04/07/17 04/08/17 05:59 05:59 05:59 Intake Total 2700 1950 Output Total 775 1425 325 Balance 1925 525 -325 PT 14.9 SEC (12.0-15.0) 04/05/17 19:35 INR 1.15 (0.83-1.16) 04/05/17 19:35 - Physical Exam Constitutional: uncomfortable Eyes: PERRL Ears, Nose, Mouth, Throat: hearing normal Cardiovascular: regular rate and rhythym Respiratory: no respiratory distress Skin: No normal color (pale) Neurologic: No sensation intact bilaterally (has minimal sensation in left thigh area) Psychiatric: interacting appropriately, not anxious, not encephalopathic ICD10 Worksheet Patient Problems: Problems Problem Status Onset Back pain Acute
[2017-04-07] MEDS: ENOXAPARIN 40 MG/0.4 ML SYR SC SCH (15:35)
--- NOTE | 2017-04-07 16:13 | PCMIDPN ---
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 Anticipate this will be slow to show signs of improvement. Neurosurgical consultation notes reviewed and appreciated. Continue cefepime dosed at 2 g IV q.8 hours. Plan 8 week course of antibiotic therapy followed by oral suppression in the setting of retained hardware. * Penicillin allergy: Currently tolerating cefepime without difficulty. 04/07/17 16:06 Subjective: Patient complains of low back pain. Persistent left lower extremity weakness which has been present for prolonged period. No itching or rash with cefepime. Objective: Vital Signs Temp Pulse Resp BP Pulse Ox 36.1 C 80 12 146/84 H 94 04/07/17 08:00 04/07/17 08:00 04/07/17 08:00 04/07/17 08:31 04/07/17 08:00 Laboratory Results 04/06/17 05:02 04/06/17 05:02 04/06/17 04/07/17 04/08/17 05:59 05:59 05:59 Intake Total 2700 1950 Output Total 775 1425 325 Balance 1925 525 -325 ESR 9 MM/HR (0-20) 04/05/17 19:35 C-Reactive Protein 31.3 mg/L (<10.0) H 04/05/17 19:35 Cefepime # 2 Back cultures with growth of carbapenem resistant Pseudomonas aeruginosa Blood cultures no growth - Physical Exam General Appearance: alert, no apparent distress EENT: No thrush, No conjunctival petechiae Respiratory: lungs clear, No respiratory distress Cardiac/Chest: regular rate, rhythm Abdomen: non-tender, No distended Neuro/Psych: motor weakness (Left thigh) ICD10 Worksheet Patient Problems: Problems Problem Status Onset Back pain Acute
[2017-04-07] MEDS ORDERED: ALTEPLASE 2 MG VIAL IVP PRN (18:07)
[2017-04-07] MEDS: oxyCODONE IR 5 MG TAB PO PRN (20:55)
[2017-04-07] MEDS: GABAPENTIN 300 MG CAP PO SCH (20:55)
[2017-04-08] MEDS: METHOCARBAMOL 750 MG TAB PO SCH ×3 (00:43→17:17)
[2017-04-08] MEDS: oxyCODONE IR 5 MG TAB PO PRN ×6 (00:43→21:08)
[2017-04-08] MEDS: morphINE SR 30 MG TAB PO SCH ×3 (00:43→17:17)
[2017-04-08] MEDS: CEFEPIME HCL 2 GM in D5W 100 ML IV SCH ×3 (05:30→20:57)
[2017-04-08 06:38] LABS: % SATURATION 9 % (20-55); TOTAL IRON BINDING CAPACITY 299 ug/dL (260-490)
[2017-04-08 07:03] LABS: FERRITIN - BCH 46.7 ng/mL (17.9-464.0)
--- NOTE | 2017-04-08 07:27 | SOAPPROG ---
SOAP Progress Note Assessment/Plan: Assessment: 67 yr old s/p L2-S1 with outside surgeon in September/October 2016 (involving 4 surgeries) left quad, IP weakness/atrophy since surgery Plan: -MRI lumbar spine demonstrated concerns for infection at L5-S1 -Biopsy of S1 screw resulted in pseudomonas - ID managing abx treatment plan. On Cefipime currently -Severe left quad weakness with atrophy which likely is from nerve damage from his previous DLIF surgery -Will continue to follow -PT/OT -Please call neurosurgery with any questions/concerns -Discussed patient with Dr Katz 04/08/17 07:29 Subjective: patient lying in bed, comfortable. States his left leg weakness is "the same." Denies new issues. Objective: Vital Signs Temp Pulse Resp BP Pulse Ox 36.7 C 81 18 121/81 H 98 04/07/17 23:17 04/07/17 23:17 04/07/17 23:17 04/07/17 23:17 04/07/17 23:17 Laboratory Results 04/06/17 05:02 04/06/17 05:02 04/07/17 04/08/17 04/09/17 05:59 05:59 05:59 Intake Total 1950 1725 Output Total 1425 1325 Balance 525 400 PT 14.9 SEC (12.0-15.0) 04/05/17 19:35 INR 1.15 (0.83-1.16) 04/05/17 19:35 Neuro: Left IP 3+/5, Left Quad 3/5 (unchange per pt) sens decreased left leg (unchanged) ICD10 Worksheet Patient Problems: Problems Problem Status Onset Back pain Acute
[2017-04-08] MEDS: PANTOPRAZOLE SODIUM 40 MG TAB PO SCH (08:39)
[2017-04-08] MEDS: FUROSEMIDE 20 MG TAB PO SCH (08:40)
[2017-04-08] MEDS: amLODIPine BESYLATE 5 MG TAB PO SCH (08:41)
[2017-04-08] MEDS: CETIRIZINE 10 MG TAB PO SCH (08:42)
[2017-04-08] MEDS: SERTRALINE HCL 50 MG TAB PO SCH ×2 (08:42→20:58)
[2017-04-08] MEDS: MULTIVITAMINS 1 EACH TAB PO SCH (09:51)
[2017-04-08] MEDS: ENOXAPARIN 40 MG/0.4 ML SYR SC SCH (09:51)
[2017-04-08] MEDS: POLYETHYLENE GLYCOL 3350 17 GM PKT PO SCH (09:51)
[2017-04-08] MEDS: TRIAMCINOLONE 0.1% 15 GM CRTUBE TP PRN (09:52)
[2017-04-08] MEDS: CHOLECALCIFEROL VIT D3 1,000 UNITS TAB PO SCH (09:52)
[2017-04-08] MEDS: ASPIRIN 81 MG CHEWABLE TAB PO SCH (09:52)
[2017-04-08] MEDS: OMEGA-3 FATTY ACIDS 1,000 MG CAP PO SCH (09:52)
[2017-04-08] MEDS: ATORVASTATIN CALCIUM 20 MG TAB PO SCH (09:52)
[2017-04-08] MEDS: DICLOFENAC SODIUM 1% 100 GM GEL TP SCH (09:52)
[2017-04-08] MEDS: AZELASTINE NASAL MDI EACHNARE SCH ×2 (09:52→20:58)
--- NOTE | 2017-04-08 11:37 | ASMTCMCOM ---
CM Note CM Note Notes: Per PT, patient may need higher level of care than home care. is having trouble caring for him at home. I spoke with patient and about SNF - they are ok with a referral to [facility], where patient spent some time rehabbing this summer. If patient does get well enough to return home, he has a PICC line and [facility] has accepted (they were on site yesterday to speak with patient about his benefits - 100% covered). He would also have [facility] for RN/PT services. Current CM Discharge plan: likely SNF, the [facility] Date Signed: 04/08/2017 11:37 AM Electronically Signed By:Salud Anderson RN
--- NOTE | 2017-04-08 14:32 | HOSPPROG ---
Hospitalist Progress Note Assessment/Plan: Patient is a 67-year-old male who underwent several spine surgeries in September of this year. He required a revision in October due to pain and leg weakness resulting from the surgery. These procedures were performed @ [facility]. He had several MRIs with most recent one concerning for possible osteomyelitis in the L5-S1 region. He was admitted for further care. * diskitis and osteomyelitis with hardware in place -antibiotics to treat and cover Pseudomonas -Cefepime -plan is for IV abx x 8 weeks then followed by oral chronic suppression -PICC placed today * diabetes mellitus type 2 * hypertension -bp a bit elevated * microcytic anemia, iron deficiency -takes iron *dvt prophylaxis: LMWH since he will not be having surgery at this time. Reviewed his care w Dr Pbalo/ will aim to dc to rehab tomorrow and have him f/u w ID and neurosurgery. Reviewed this w CM who will help arrange. Subjective: Celso cont to have numbness and weakness down left leg, thigh area. Objective: Vital Signs Temp Pulse Resp BP Pulse Ox 36.4 C 78 12 142/83 H 97 04/08/17 08:00 04/08/17 08:00 04/08/17 08:00 04/08/17 08:41 04/08/17 08:00 Laboratory Results 04/06/17 05:02 04/06/17 05:02 04/07/17 04/08/17 04/09/17 05:59 05:59 05:59 Intake Total 1950 1725 Output Total 1425 1325 300 Balance 525 400 -300 PT 14.9 SEC (12.0-15.0) 04/05/17 19:35 INR 1.15 (0.83-1.16) 04/05/17 19:35 - Physical Exam Constitutional: appears nourished, uncomfortable Eyes: PERRL Ears, Nose, Mouth, Throat: hearing normal Cardiovascular: regular rate and rhythym Respiratory: no respiratory distress Gastrointestinal: normoactive bowel sounds Skin: warm, No normal color (pale) Musculoskeletal: generalized weakness Neurologic: AAOx3 Psychiatric: interacting appropriately ICD10 Worksheet Patient Problems: Problems Problem Status Onset Back pain Acute
--- NOTE | 2017-04-08 17:30 | PCMIDPN ---
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 MRI and biopsy images reviewed with Radiology today consistent with diskitis and osteomyelitis at L5-S1. No epidural abscess or drainable focus present. Plan cefepime x8 weeks with plans for suppressive fluoroquinolone thereafter. Favor completion of initial course with cefepime followed by quinolone suppression in event does not resolve with medical therapy at which point in time evolved resistance would be potential risk with need to maintain quinolone susceptibility as these represent only oral suppressive agents with activity against Pseudomonas. Reviewed neurosurgical plans with Dr. Katz with plans for continued medical management given absence of drainable focus and likelihood that fusion has not occurred. Hardware removal may ultimately become necessary if fails to respond to medical management. Clinical findings and plan were discussed with patient and . Side effects of cefepime therapy and risks of PICC line were discussed as well. Likely discharge to longterm rehabilitation tomorrow. Plan follow-up with Dr. Millan in our office next week. Time spent, greater than 35 minutes, of which greater than half was spent in coordination of care related to postoperative back infection and continued plan of care. 04/08/17 17:26 Subjective: Patient feels about the same. No skin rash or diarrhea with cefepime therapy. PICC line placed earlier today. Objective: Vital Signs Temp Pulse Resp BP Pulse Ox 36.7 C 97 12 124/74 H 91 L 04/08/17 15:33 04/08/17 15:33 04/08/17 15:33 04/08/17 15:33 04/08/17 15:33 Laboratory Results 04/06/17 05:02 04/06/17 05:02 04/07/17 04/08/17 04/09/17 05:59 05:59 05:59 Intake Total 1950 1725 Output Total 1425 1325 1400 Balance 525 400 -1400 ESR 9 MM/HR (0-20) 04/05/17 19:35 C-Reactive Protein 31.3 mg/L (<10.0) H 04/05/17 19:35 Cefepime # 3 Back cultures with growth of carbapenem resistant Pseudomonas aeruginosa from disc aspirate; aspirate labeled adjacent to hardware is culture negative to date MRI and biopsy films reviewed with Radiology today showing evidence of diskitis and osteomyelitis at L5-S1 which is present adjacent to indwelling hardware; no evidence of epidural abscess - Physical Exam General Appearance: alert, no apparent distress EENT: No scleral icterus, No thrush Cardiac/Chest: regular rate, rhythm Abdomen: non-tender, No distended Skin: No rash ICD10 Worksheet Patient Problems: Problems Problem Status Onset Back pain Acute
[2017-04-08] MEDS: GABAPENTIN 300 MG CAP PO SCH ×2 (20:58→21:08)
[2017-04-09] MEDS: morphINE SR 30 MG TAB PO SCH ×3 (01:35→16:59)
[2017-04-09] MEDS: METHOCARBAMOL 750 MG TAB PO SCH ×3 (01:35→16:59)
[2017-04-09] MEDS: oxyCODONE IR 5 MG TAB PO PRN ×5 (01:35→16:59)
[2017-04-09] MEDS: CEFEPIME HCL 2 GM in D5W 100 ML IV SCH ×2 (05:54→14:07)
[2017-04-09 07:45] VITALS: BP 117/75; PULSE 95; RESP 14; TEMP 97.7; O2SAT 96
[2017-04-09] MEDS: amLODIPine BESYLATE 5 MG TAB PO SCH (08:03)
[2017-04-09] MEDS: SERTRALINE HCL 50 MG TAB PO SCH (08:03)
[2017-04-09] MEDS: PANTOPRAZOLE SODIUM 40 MG TAB PO SCH (08:03)
[2017-04-09] MEDS: CETIRIZINE 10 MG TAB PO SCH (08:03)
--- NOTE | 2017-04-09 08:27 | NEUSURGPN ---
Assessment/Plan: 67 yr old s/p L2-S1 with outside surgeon in September/October 2016 (involving 4 surgeries) left quad, IP weakness/atrophy since surgery Plan: -MRI lumbar spine demonstrated concerns for infection at L5-S1 -Biopsy of S1 screw resulted in pseudomonas - ID managing abx treatment plan. On Cefipime currently -Severe left quad weakness with atrophy which likely is from nerve damage from his previous DLIF surgery -PT/OT -Patient anticipated to be discharged to rehab today, we will have him follow up with Dr Katz in 3-4 weeks -Please call neurosurgery with any questions/concerns -Discussed patient with Dr Katz Subjective: Patient denies any changes in symptoms overnight, resting in bed Objective: AxO x3 5/5 BLE except Left IP 3+/5, Left Quad 3/5 Sensation intact to light touch BLE Dressing CDI from biopsy site, RN will remove prior to discharge Neuro Check Frequency: per routine Urinary Catheter in Place: No - Physician Discussed Patient with Dr.: Katz Neurosurgery Physical Exam - Vitals, I&O, Labs I and O 04/08/17 04/09/17 04/10/17 05:59 05:59 05:59 Intake Total 1725 Output Total 1325 2650 250 Balance 400 -2650 -250 Intake: Oral (ml) 1500 IV Infused (ml) 225 Cefepime HCl 2 gm In D5w 225 100 ml @ 200 mls/hr IV Q8HRS [facility] Rx#:[id number] Output: Urine (ml) 1325 2650 250 Urinal 1325 2650 250 Other: Intake Quantity Yes Sufficient Number of Voids Urinal 1 3 1 Vital Signs Temp Pulse Resp BP Pulse Ox 36.5 C 95 14 117/75 96 04/09/17 07:43 04/09/17 07:43 04/09/17 07:43 04/09/17 08:03 04/09/17 07:43 Laboratory Results 04/06/17 05:02 04/06/17 05:02 ICD10 Worksheet Patient Problems: Problems Problem Status Onset Back pain Acute
--- NOTE | 2017-04-09 08:42 | PDIAF ---
- Diagnosis Diagnosis: Postoperative back infection Code Status: Full Code - Medication Management Discharge Medications: Medications to Continue on Transfer Acetaminophen [Tylenol 325mg (*)] 650 mg PO BID PRN 04/01/17 [Last Taken ] Aspirin [Aspirin 81mg (*)] 81 mg PO DAILY 04/01/17 [Last Taken 04/02/17] Atorvastatin Calcium [Lipitor 20 mg (*)] 20 mg PO DAILY 04/01/17 [Last Taken 10/12] Cholecalciferol (Vitamin D3) [Vitamin D3] 5,000 unit PO DAILY 04/01/17 [Last Taken 04/02/17] Diclofenac Sodium 1% [Voltaren Gel (*)] 1 yoko TP DAILY 04/01/17 [Last Taken 10/12] Ferrous Sulfate [Iron] 325 mg PO MWF 04/01/17 [Last Taken 04/02/17] Furosemide [Lasix 20 MG (*)] 40 mg PO DAILY 04/01/17 [Last Taken 04/02/17] Gabapentin [Neurontin 300 MG (*)] 300 mg PO HS 04/01/17 [Last Taken 04/02/17] Melatonin [Melatonin 5 mg] 5 mg PO HS PRN 04/01/17 [Last Taken Unknown] Methocarbamol [Robaxin 750 mg (*)] 750 mg PO Q8H 04/01/17 [Last Taken 04/02/17] Multivitamins [Multivitamin (*)] 1 each PO DAILY 04/01/17 [Last Taken 04/02/17] [place]-3S/Dha/Epa/Fish Oil [Fish Oil 1,200 mg Softgel] 1 each PO DAILY 04/01/17 [ Last Taken 04/03/17] Pantoprazole Sodium [Protonix 40mg (*)] 40 mg PO DAILY 04/01/17 [Last Taken 11/11 04:00] Polyethylene Glycol 3350 [Miralax 17 gm (*)] 17 gm PO DAILY 04/01/17 [Last Taken 04/02/17] Sertraline HCl [Zoloft 50mg (*)] 50 mg PO BID 04/01/17 [Last Taken 04/03/17 06: 00] morphINE SR [MS Contin/Oramorph SR 30 mg (*)] 30 mg PO Q8H 04/01/17 [Last Taken 04/03/17 06:00] oxyCODONE/APAP 5/325 [Percocet 5/325 (*)] 1 tab PO Q4-6PRN PRN 04/01/17 [Last Taken 04/05/17] Azelastine [Astelin Nasal [place] (RX)] 2 sprays EACHNARE BID 04/05/17 [Last Taken Unknown] Etodolac [Etodolac ER] 500 mg PO BID 04/05/17 [Last Taken 04/02/17] FEXOFENADINE HCL 180 mg PO DAILY 04/05/17 [Last Taken Unknown] Ascorbic Acid [Vitamin C 500 mg (*)] 500 mg PO DAILY 04/06/17 [Last Taken ] Desonide 59 ml TP DAILY PRN 04/06/17 [Last Taken Unknown] Herbals/Supplements -Info Only 1 ea PO DAILY 04/06/17 [Last Taken Unknown] Loperamide HCl [Imodium 2 mg (*)] 2 mg PO PRN PRN 04/06/17 [Last Taken Unknown] Triamcinolone 0.1% [Triamcinolone 0.1% Cream (*)] 1 yoko TP TID PRN 04/06/17 [ Last Taken Unknown] amLODIPine BESYLATE [Norvasc 5 mg (*)] 10 - 15 mg PO DAILY 04/06/17 [Last Taken Unknown] Fdc Antibiotics: Cefepime 2 g IV q.8 hours Fdc Antibiotic Stop Date: 06/01/17 Discharge Medications: Refer to the Discharge Home Medication list for PRN reason. PICC Care - Routine: Yes - Orders Isolation Type: None - Labs/Radiology CBC w/diff Date: 04/10/17 (Weekly Q ) CMP Date: 04/10/17 (Weekly Q ) CRP Date: 04/10/17 (Weekly Q ) - Follow Up Care Current Providers and Referrals: ANJANA OSEGUERA [Other] - As per Instructions Maritza Millan MD [Medical Doctor] - 04/16/17 2:30 pm
[2017-04-09] MEDS: FERROUS SULFATE 325 MG TAB PO SCH (09:33)
[2017-04-09] MEDS: ATORVASTATIN CALCIUM 20 MG TAB PO SCH (09:33)
[2017-04-09] MEDS: MULTIVITAMINS 1 EACH TAB PO SCH (09:33)
[2017-04-09] MEDS: CHOLECALCIFEROL VIT D3 1,000 UNITS TAB PO SCH (09:33)
[2017-04-09] MEDS: ASPIRIN 81 MG CHEWABLE TAB PO SCH (09:33)
[2017-04-09] MEDS: OMEGA-3 FATTY ACIDS 1,000 MG CAP PO SCH (09:33)
[2017-04-09] MEDS: POLYETHYLENE GLYCOL 3350 17 GM PKT PO SCH (09:35)
[2017-04-09] MEDS: ENOXAPARIN 40 MG/0.4 ML SYR SC SCH (09:36)
[2017-04-09] MEDS: AZELASTINE NASAL MDI EACHNARE SCH (09:37)
[2017-04-09] MEDS: TRIAMCINOLONE 0.1% 15 GM CRTUBE TP PRN (09:37)
[2017-04-09] MEDS: DICLOFENAC SODIUM 1% 100 GM GEL TP SCH (09:37)
--- NOTE | 2017-04-09 09:42 | HOSPPROG ---
Hospitalist Progress Note Assessment/Plan: Patient is a 67-year-old male who underwent several spine surgeries in September of this year. He required a revision in October due to pain and leg weakness resulting from the surgery. These procedures were performed @ [facility]. He had several MRIs with most recent one concerning for possible osteomyelitis in the L5-S1 region. He was admitted for further care. * diskitis and osteomyelitis with hardware in place -antibiotics to treat and cover Pseudomonas -Cefepime -plan is for IV abx x 8 weeks then followed by oral chronic suppression -PICC placed * diabetes mellitus type 2 * hypertension -bp a bit elevated * microcytic anemia, iron deficiency -takes iron *dvt prophylaxis: dc to rehab today Subjective: charito is always in some mild pain in the lumbar region. Better with pain meds but is ongoing. Objective: Vital Signs Temp Pulse Resp BP Pulse Ox 36.5 C 95 14 117/75 96 04/09/17 07:43 04/09/17 07:43 04/09/17 07:43 04/09/17 08:03 04/09/17 07:43 Laboratory Results 04/06/17 05:02 04/06/17 05:02 04/08/17 04/09/17 04/10/17 05:59 05:59 05:59 Intake Total 1725 Output Total 1325 2650 250 Balance 400 -2650 -250 PT 14.9 SEC (12.0-15.0) 04/05/17 19:35 INR 1.15 (0.83-1.16) 04/05/17 19:35 - Physical Exam Constitutional: uncomfortable Eyes: PERRL Ears, Nose, Mouth, Throat: hearing normal Cardiovascular: regular rate and rhythym Respiratory: no respiratory distress Skin: warm, No normal color (pale) Musculoskeletal: generalized weakness Neurologic: AAOx3 Psychiatric: interacting appropriately ICD10 Worksheet Patient Problems: Problems Problem Status Onset Back pain Acute
[2017-04-09] MEDS: FUROSEMIDE 20 MG TAB PO SCH (09:46)
[2017-04-09] MEDS ORDERED: BISACODYL 10 MG SUPP PR ONE (09:47)
--- NOTE | 2017-04-09 09:49 | PDIAF ---
- Diagnosis Diagnosis: Postoperative back infection Code Status: Full Code - Medication Management Discharge Medications: Medications to Continue on Transfer Acetaminophen [Tylenol 325mg (*)] 650 mg PO BID PRN 04/01/17 [Last Taken ] Aspirin [Aspirin 81mg (*)] 81 mg PO DAILY 04/01/17 [Last Taken 04/02/17] Atorvastatin Calcium [Lipitor 20 mg (*)] 20 mg PO DAILY 04/01/17 [Last Taken 10/12] Cholecalciferol (Vitamin D3) [Vitamin D3] 5,000 unit PO DAILY 04/01/17 [Last Taken 04/02/17] Diclofenac Sodium 1% [Voltaren Gel (*)] 1 yoko TP DAILY 04/01/17 [Last Taken 10/12] Ferrous Sulfate [Iron] 325 mg PO MWF 04/01/17 [Last Taken 04/02/17] Gabapentin [Neurontin 300 MG (*)] 300 mg PO HS 04/01/17 [Last Taken 04/02/17] Melatonin [Melatonin 5 mg] 5 mg PO HS PRN 04/01/17 [Last Taken Unknown] Methocarbamol [Robaxin 750 mg (*)] 750 mg PO Q8H 04/01/17 [Last Taken 04/02/17] Multivitamins [Multivitamin (*)] 1 each PO DAILY 04/01/17 [Last Taken 04/02/17] [place]-3S/Dha/Epa/Fish Oil [Fish Oil 1,200 mg Softgel] 1 each PO DAILY 04/01/17 [ Last Taken 04/03/17] Pantoprazole Sodium [Protonix 40mg (*)] 40 mg PO DAILY 04/01/17 [Last Taken 11/11 04:00] Polyethylene Glycol 3350 [Miralax 17 gm (*)] 17 gm PO DAILY 04/01/17 [Last Taken 04/02/17] Sertraline HCl [Zoloft 50mg (*)] 50 mg PO BID 04/01/17 [Last Taken 04/03/17 06: 00] morphINE SR [MS Contin/Oramorph SR 30 mg (*)] 30 mg PO Q8H 04/01/17 [Last Taken 04/03/17 06:00] oxyCODONE/APAP 5/325 [Percocet 5/325 (*)] 1 tab PO Q4-6PRN PRN 04/01/17 [Last Taken 04/05/17] Azelastine [Astelin] 2 sprays EACHNARE BID 04/05/17 [Last Taken Unknown] Etodolac [Etodolac ER] 500 mg PO BID 04/05/17 [Last Taken 04/02/17] FEXOFENADINE HCL 180 mg PO DAILY 04/05/17 [Last Taken Unknown] Ascorbic Acid [Vitamin C 500 mg (*)] 500 mg PO DAILY 04/06/17 [Last Taken ] Desonide 59 ml TP DAILY PRN 04/06/17 [Last Taken Unknown] Herbals/Supplements -Info Only 1 ea PO DAILY 04/06/17 [Last Taken Unknown] Loperamide HCl [Imodium 2 mg (*)] 2 mg PO PRN PRN 04/06/17 [Last Taken Unknown] Triamcinolone 0.1% [Triamcinolone 0.1% Cream (*)] 1 yoko TP TID PRN 04/06/17 [ Last Taken Unknown] amLODIPine BESYLATE [Norvasc 5 mg (*)] 10 - 15 mg PO DAILY 04/06/17 [Last Taken Unknown] Acetaminophen [Tylenol 325mg (*)] 650 mg PO Q4HRS PRN tab 04/09/17 [Last Taken Unknown] Enoxaparin [Lovenox 40 MG (*)] 40 mg SC DAILY syr 04/09/17 [Last Taken Unknown] Furosemide [Lasix 20 MG (*)] 40 mg PO DAILY PRN #1 04/09/17 [Last Taken 04/02/17 ] Court Attendant Antibiotics: Cefepime 2 g IV q.[address] Antibiotic Stop Date: 06/01/17 Discharge Medications: Refer to the Discharge Home Medication list for PRN reason. PICC Care - Routine: Yes - Orders Services needed: Physical Therapy, Occupational Therapy Isolation Type: None Diet Recommendation: no restrictions on diet Diet Texture: Regular Texture Diet Additional: cont lovenox till more mobile, then dc. Make an appointment to see Dr Katz in 3-4 weeks for f/u care. - Labs/Radiology CBC w/diff Date: 04/10/17 (Weekly Q ) CMP Date: 04/10/17 (Weekly Q ) CRP Date: 04/10/17 (Weekly Q ) - Follow Up Care Current Providers and Referrals: ANJANA OSEGUERA [Other] - As per Instructions Maritza Millan MD [Medical Doctor] - 04/16/17 2:30 pm Augie Katz MD [Medical Doctor] -
--- NOTE | 2017-04-09 10:31 | GDS ---
[f rep st] DISCHARGE SUMMARY DISCHARGE DIAGNOSES: 1. Diskitis and osteomyelitis with hardware in place. 2. Diabetes type 2. 3. Hypertension. 4. Microcytic anemia, iron deficiency. HISTORY OF PRESENT ILLNESS: Briefly, the patient is a 67-year-old male who underwent several spine surgeries in September of this year. He required a revision in October due to pain and leg weakness resulting from the surgery. These procedures were performed at [facility]. He had several MRIs with the most recent one concerning for possible osteomyelitis in the L5 and S1 region. He was seen and evaluated by Neurosurgery as well as Infectious Disease. At this time, the hardware will be left in place. He will be treated with IV antibiotics for the next 8 weeks and then further discussion if the hardware should be removed or if the patient will be on chronic suppression. CONSULTATION: 1. Kee Estrada, physician assistant manager of operations with Neurosurgery. 2. Dr. Vivi Bell, physician with Infectious Disease team. HOSPITAL COURSE: 1. Diskitis and osteomyelitis. His culture grew out Pseudomonas. He will be on cefepime. He has a PICC in place. 2. Diabetes type 2, stable. 3. Hypertension. Blood pressure is improved today. 4. Microcytic anemia. He has iron deficiency. DISCHARGE CONDITION: Stable. Blood pressure is 117/75, heart rate is 95, respiratory rate is 14, O2 sats on room air are 96%. DISCHARGE INSTRUCTIONS: 1. Further follow up with Dr. Millan. He has an appointment scheduled to follow up with her next week. 2. To follow up with Dr. Katz in 3-4 weeks. 3. If he develops fever, chills, worsening back pain, to return to the ER. Greater than 30 minutes discharging and coordinating patient's care. /[id number]/MODL MTDD
--- NOTE | 2017-04-09 11:20 | WOCRNPDOC ---
WOCRN Advanced Assessment Note - Skin Integrity Problem, Advanced Assess Left Lower Sacrum Pressure Injury Dressing Type: Open to Air Wound Bed Constitution: Granulation Tissue Site Measurement - Head-to-Toe Length X Width X Depth (cm): 1.5x1x0.2 Pressure Injury Stage: Stage 3 Skin Integrity Problem Comment: Mulu wound skin very damaged and rolled from frequent friction forces. Patient states that wounds have been there for "a long time". Education with patient and regarding pressure injury prevention and reduction of friction. Rasta Bhavesh cushion provided for home use as patient sleeps in recliner. Right Lower Sacrum Pressure Injury Dressing Type: Open to Air Wound Bed Constitution: Smooth Tissue Site Measurement - Head-to-Toe Length X Width X Depth (cm): 0.6x0.6x0.1 Pressure Injury Stage: Stage 2 Skin Integrity Problem Comment: Wounds from friction but with a large pressure component. Patient reports using aquaphor without much improvement in his wounds. ALEK fregoso alerted.
--- NOTE | 2017-04-14 09:37 | PQFORM ---
PHYSICIAN QUERY FORM Needs Your Response This query form is being sent to you to assure this patient record is coded properly. Please respond to the question below: LEATHER HEEL BREASTER QUESTION: Dear RALF Cleary, In reviewing this patient medical record it was noted in Dr. Bell's Consultation that the patient had the diagnosed of "postoperative back infection w/ discitis and osteomyelitis." In the H&P it is stated the patient had a "Complicated recent surgical course," and "recent needle biopsy with results of Pseudomonas." Also noted in the H&P was the diagnosis of "Hx of spinal hardware placement c/b possible infection." After study, can the infection be further specified? Infection/inflammatory reaction due to internal fixation device Infection following a procedure Other more appropriate diagnosis Unable to determine Thank you JOAN Martinez HIM/Coding Dept. [phone] INSTRUCTIONS FOR RESPONSE: Answer question by clicking on the "Edit Document" button. Move cursor to area below the stars. When complete, hit "Save." Click on the "Sign" button, then click "Sign" again. Type in your PIN and hit "Enter." Infection following a procedure MTDD
== END 2017-04-09 17:08 | DRG 863 ==
LOC: F3N 23:35
PROVIDERS: ADMIT Student in an Organized Health Care Education/Training Program; ATTEND Student in an Organized Health Care Education/Training Program
PROC: 02HV33Z Insertion of Infusion Device into Superior Vena Cava, Percutaneous Approach (ICD-10-PCS; principal; 2017-04-08)
DX: T81.4XXA Infection following a procedure, initial encounter (principal); M46.27 Osteomyelitis of vertebra, lumbosacral region; B96.5 Pseudomonas (aeruginosa) (mallei) (pseudomallei) as the cause of diseases classified elsewhere; M46.47 Discitis, unspecified, lumbosacral region; E78.5 Hyperlipidemia, unspecified; E11.9 Type 2 diabetes mellitus without complications; I10 Essential (primary) hypertension; Z98.1 Arthrodesis status; Z96.652 Presence of left artificial knee joint; G89.29 Other chronic pain; D50.9 Iron deficiency anemia, unspecified; Z87.891 Personal history of nicotine dependence; Z88.0 Allergy status to penicillin; Z80.9 Family history of malignant neoplasm, unspecified; Z83.3 Family history of diabetes mellitus
CPT/HCPCS: 96365; 97110-GP; 97116-GP; 97162-GP; A9585; C1751; G8978-GP-CJ; G8979-GP-CI; J0692; J1170; J1650; J2250; J3010; Q9967

== ENCOUNTER 2017-07-01 09:21 | Emergency (ER) | payer OTHER, BC ==
[2017-07-01] MEDS ORDERED: ONDANSETRON 4 MG/2 ML VIAL IVP ONE (09:59)
[2017-07-01] MEDS ORDERED: HYDROmorphONE/DILAUDID 1 MG/ML INJ IVP ONE ×2 (09:59→11:04)
[2017-07-01] MEDS ORDERED: NS 1,000 ML IV ONE ×2 (09:59)
[2017-07-01] MEDS ORDERED: HYDROmorphONE/DILAUDID 2 MG/ML INJ ONE (10:05)
[2017-07-01 10:07] LABS: PLATELET COUNT 228 10^3/uL (150-400)
--- NOTE | 2017-07-01 10:10 | EDPHY ---
H & P Stated Complaint: N/V, body aches since Friday Time Seen by Provider: 07/01/17 09:46 HPI/ROS: CHIEF COMPLAINT: Nausea, vomiting, myalgias HISTORY OF PRESENT ILLNESS: The patient presents to the ED with several days of nausea, vomiting and myalgias. The patient has a history of chronic diskitis osteomyelitis currently on oral antibiotics under the care the Infectious Disease Clinic. The patient denies significant diarrhea. He denies any cough, rash or arthralgias. The patient reports he has been unable to keep his regular pain medications down. He complains of a mild generalized abdominal pain. REVIEW OF SYSTEMS: A comprehensive 10 point review of systems is otherwise negative aside from elements mentioned in the history of present illness. Source: Patient Exam Limitations: No limitations - Personal History Current Tetanus Diphtheria and Acellular Pertussis (TDAP): Yes - Medical/Surgical History Hx Asthma: No Hx Chronic Respiratory Disease: No Hx Diabetes: Yes Hx Cardiac Disease: No Hx Renal Disease: No Hx Cirrhosis: No Hx Alcoholism: No Hx HIV/AIDS: No Hx Splenectomy or Spleen Trauma: No Other PMH: back surgery "that didn't go well", cataracts, turp - Social History Smoking Status: Former smoker - Physical Exam Exam: General Appearance: Thin male, no acute distress Eyes: Pupils equal and round no pallor or injection ENT, Mouth: Dry mucous membranes Respiratory: There are no retractions, lungs are clear to auscultation Cardiovascular: Regular rate and rhythm Gastrointestinal: Minimal epigastric tenderness, no peritoneal signs Neurological: 5/5 strength all 4 extremities Skin: Warm and dry, no rashes Musculoskeletal: Neck is supple nontender Extremities: symmetrical, full range of motion Constitutional: Initial Vital Signs Temperature (C) 36.7 C 07/01/17 09:25 Heart Rate 98 07/01/17 09:25 Respiratory Rate 18 07/01/17 09:25 Blood Pressure 115/83 H 07/01/17 09:25 O2 Sat (%) 98 07/01/17 09:25 O2 Delivery Mode Nasal Cannula O2 (L/minute) 1 Allergies/Adverse Reactions: Penicillins Allergy (Intermediate, Verified 07/01/17 09:31) Hives Home Medications: Medication Instructions Recorded Aspirin EC [Aspirin EC 81 mg (*)] 81 mg PO DAILY 07/01/17 Atorvastatin Calcium [Lipitor 20 20 mg PO DAILY 07/01/17 mg (*)] Besylate 07/01/17 Diclofenac Sodium 1% [Voltaren Gel 1 yoko TP 07/01/17 (*)] Etodolac [Etodolac ER] 500 mg PO 07/01/17 Furosemide [Lasix 20 MG (*)] 20 mg PO 07/01/17 Gabapentin [Neurontin 300 MG (*)] 300 mg PO HS 07/01/17 Methocarbamol [Robaxin 750 mg (*)] 750 mg PO 07/01/17 Pantoprazole Sodium [Protonix 40mg 40 mg PO 07/01/17 (*)] Sertraline HCl [Zoloft 50mg (*)] 50 mg PO DAILY 07/01/17 Testosterone [Testopel] 75 mg [place] 07/01/17 levOFLOXACIN [levAQUIN (*)] 750 mg PO 07/01/17 morphINE SR [MS Contin/Oramorph SR 30 mg PO BID 07/01/17 30 mg (*)] oxyCODONE/APAP 5/325 [Percocet 1 tab PO 07/01/17 5/325 (*)] Medical Decision Making ED Course/Re-evaluation: The patient presents to the emergency department with intractable vomiting. The patient has a history of chronic pain as well as a spinal infection which she is currently receiving oral narcotic and antibiotics for. The patient presents to the ED with several days of vomiting and dehydration. He had an IV established. I found his abdominal examination to be benign. The patient received 2 L of normal saline. He received IV narcotic medications in addition to anti emetics. The patient was re-evaluated at 12:00 p.m. and is continuing to feel better. He will be given a po challenge. I re-evaluated the patient at 2pm. His oral pain medications have been ordered. I did discuss the case with Dr. Millan. The patient did recently increase his Levaquin. We will hold this medication as this may be causing some GI side effect. Dr. Millan will contact the patient in 2 days to see how he was doing. The patient is comfortable being discharged home. He was offered admission but prefers to attempt outpatient management. He will be given a prescription for Zofran. Differential Diagnosis: Differential diagnosis considered includes perforation, obstruction, mesenteric adenitis, gastroenteritis, medication side effect - Data Points Laboratory Results: Laboratory Results 07/01/17 09:57 07/01/17 09:57 07/01/17 07/01/17 09:57 09:57 WBC 9.82 10^3/uL H 10^3/uL (3.80-9.50) RBC 5.87 10^6/uL 10^6/uL (4.40-6.38) Hgb 17.0 g/dL g/dL (13.7-17.5) Hct 48.8 % % (40.0-51.0) MCV 83.1 fL fL (81.5-99.8) MCH 29.0 pg pg (27.9-34.1) MCHC 34.8 g/dL g/dL (32.4-36.7) RDW 15.7 % H % (11.5-15.2) Plt Count 228 10^3/uL 10^3/uL (150-400) MPV 9.0 fL fL (8.7-11.7) Neut % (Auto) 79.7 % H % (39.3-74.2) Lymph % (Auto) 10.8 % L % (15.0-45.0) [place] % (Auto) 8.9 % % (4.5-13.0) Eos % (Auto) 0.0 % L % (0.6-7.6) Baso % (Auto) 0.2 % L % (0.3-1.7) Nucleat RBC Rel Count 0.0 % % (0.0-0.2) Absolute Neuts (auto) 7.83 10^3/uL H 10^3/uL (1.70-6.50) Absolute Lymphs (auto) 1.06 10^3/uL 10^3/uL (1.00-3.00) Absolute Monos (auto) 0.87 10^3/uL H 10^3/uL (0.30-0.80) Absolute Eos (auto) 0.00 10^3/uL L 10^3/uL (0.03-0.40) Absolute Basos (auto) 0.02 10^3/uL 10^3/uL (0.02-0.10) Absolute Nucleated RBC 0.00 10^3/uL 10^3/uL (0-0.01) Immature Gran % 0.4 % % (0.0-1.1) Immature Gran # 0.04 10^3/uL 10^3/uL (0.00-0.10) Sodium 140 mEq/L mEq/L (135-145) Potassium 3.6 mEq/L mEq/L (3.5-5.2) Chloride 101 mEq/L mEq/L (97-110) Carbon Dioxide 22 mEq/l mEq/l (22-31) Anion Gap 17 mEq/L H mEq/L (8-16) BUN 13 mg/dL mg/dL (7-23) Creatinine 0.6 mg/dL L mg/dL (0.7-1.3) Estimated GFR > 60 Glucose 112 mg/dL H mg/dL (70-100) Calcium 10.5 mg/dL H mg/dL (8.5-10.4) Total Bilirubin 1.1 mg/dL mg/dL (0.1-1.4) Conjugated Bilirubin 0.3 mg/dL mg/dL (0.0-0.5) Unconjugated Bilirubin 0.8 mg/dL mg/dL (0.0-1.1) AST 20 IU/L IU/L (17-59) ALT 32 IU/L IU/L (21-72) Alkaline Phosphatase 95 IU/L IU/L (38-126) Total Protein 7.5 g/dL g/dL (6.3-8.2) Albumin 4.8 g/dL g/dL (3.5-5.0) Lipase 61 IU/L IU/L (23-300) Medications Given: Discontinued Medications Hydromorphone HCl (Dilaudid) 1 mg IVP EDNOW ONE Stop: 07/01/17 10:00 Last Admin: 07/01/17 10:09 Dose: 1 mg Hydromorphone HCl (Dilaudid) 1 mg IVP EDNOW ONE Stop: 07/01/17 11:05 Last Admin: 07/01/17 11:06 Dose: 1 mg Sodium Chloride (Ns) 1,000 mls @ 0 mls/hr IV EDNOW ONE; Wide Open PRN Reason: Protocol Stop: 07/01/17 10:00 Last Admin: 07/01/17 10:07 Dose: 1,000 mls Sodium Chloride (Ns) 1,000 mls @ 0 mls/hr IV EDNOW ONE; Wide Open PRN Reason: Protocol Stop: 07/01/17 10:00 Last Admin: 07/01/17 10:08 Dose: 1,000 mls Morphine Sulfate (Ms Contin/Oramorph Sr) 30 mg PO ONCE ONE Stop: 07/01/17 14:03 Last Admin: 07/01/17 14:25 Dose: 30 mg Ondansetron HCl (Zofran) 4 mg IVP EDNOW ONE Stop: 07/01/17 10:00 Last Admin: 07/01/17 10:08 Dose: 4 mg Departure - Departure Disposition: Home, Routine, Self-Care Clinical Impression: Vomiting, Dehydration Condition: Good Instructions: Acute Nausea and Vomiting (ED) Additional Instructions: 1. Your case was discussed with Dr. Millan who recommends holding your Levaquin until she talks with you on . 2. Zofran as needed for nausea. 3. Return to the ED for intractable vomiting, pain, fever or other concerns. Referrals: Maritza Millan MD [Medical Doctor] - As per Instructions
[2017-07-01 11:11] VITALS: RESP 16
[2017-07-01 13:22] VITALS: O2SAT 96
[2017-07-01] MEDS ORDERED: morphINE SR 30 MG TAB PO ONE (14:02)
[2017-07-01 15:27] VITALS: BP 167/94; PULSE 90; TEMP 98.2
== END 2017-07-01 15:27 | disposition home or self-care (01) ==
DX: E86.0 Dehydration (principal); E86.9 Volume depletion, unspecified; Z79.82 Long term (current) use of aspirin; Z87.891 Personal history of nicotine dependence
CPT/HCPCS: 96374; 96375; 96376; 99284; J1170; J2405

== ENCOUNTER 2017-07-23 12:00 | Emergency (ER) | payer OTHER, BC ==
[2017-07-23] MEDS ORDERED: NS 1,000 ML IV ONE ×3 (12:37→15:13)
[2017-07-23] MEDS ORDERED: ONDANSETRON 4 MG/2 ML VIAL ONE (12:38)
[2017-07-23] MEDS ORDERED: ONDANSETRON 4 MG/2 ML VIAL IVP ONE ×2 (12:45→13:11)
--- NOTE | 2017-07-23 13:04 | EDPHY ---
H & P Time Seen by Provider: 07/23/17 13:00 HPI/ROS: Chief complaint. Dehydration, nausea, headache HPI. 67-year-old male with history of chronic diskitis osteomyelitis secondary to"back surgery that did not go well" presents with nausea vomiting, generalized pain and headache. He was seen in our emergency department with similar symptoms July 01. The patient is on chronic antibiotic therapy using Levaquin. It is being assume that the Levaquin is causing the patient's symptoms. He restarted his Levaquin after similar episode about 4-5 days ago and then developed above symptoms. He quit the Levaquin 2 days ago. He has now had 2 days of nausea and vomiting making it difficult to take medications. However no fever or chest discomfort. Feels dehydrated and has headache. He also complains of left thigh pain which is chronic and not apparently new or different. He other smith denies any new focal weakness or paresthesias. He also denies abdominal pain. ROS Constitutional. no fever/chills, no weakness Eyes. no problems with vision ENT. no sore throat, no nasal drainage Cardiovascular. no chest pain Respiratory. no shortness of breath, no cough Abdominal. No abdominal pain but nausea and vomiting; decreased oral intake . no problems urinating MS. no calf pain/swelling, no neck/back pain, no joint pain Skin. no rash Lymph. no swollen glands Neuro. Headache Past Medical/Surgical History: Chronic diskitis osteomyelitis, cataracts, TURP Social History: , nonsmoker, no alcohol Smoking Status: Former smoker Physical Exam: General Appearance: Alert well-developed male moderate distress vital signs are stable. Afebrile Eyes: Pupils equal and round no pallor or injection. ENT, mucous membranes are dry Respiratory: There are no retractions, lungs are clear to auscultation. Cardiovascular: Regular rate and rhythm. Gastrointestinal: Abdomen is soft and nontender, no masses, bowel sounds normal. Neurological: Awake and alert, sensory and motor exams grossly normal. Skin: Warm and dry, no rashes. Musculoskeletal: Neck is supple nontender. Extremities symmetrical, full range of motion. Psychiatric: Patient is oriented X 3, there is no agitation. Constitutional: Initial Vital Signs Temperature (C) 36.8 C 07/23/17 12:03 Heart Rate 90 07/23/17 12:03 Respiratory Rate 20 07/23/17 12:03 Blood Pressure 157/108 H 07/23/17 12:03 O2 Sat (%) 98 07/23/17 12:03 O2 (L/minute) 2 Allergies/Adverse Reactions: Penicillins Allergy (Intermediate, Verified 07/23/17 12:02) Hives Home Medications: Medication Instructions Recorded Aspirin EC [Aspirin EC 81 mg (*)] 81 mg PO DAILY 07/01/17 Atorvastatin Calcium [Lipitor 20 20 mg PO DAILY 07/01/17 mg (*)] Besylate 07/01/17 Diclofenac Sodium 1% [Voltaren Gel 1 yoko TP 07/01/17 (*)] Etodolac [Etodolac ER] 500 mg PO 07/01/17 Furosemide [Lasix 20 MG (*)] 20 mg PO 07/01/17 Gabapentin [Neurontin 300 MG (*)] 300 mg PO HS 07/01/17 Methocarbamol [Robaxin 750 mg (*)] 750 mg PO 07/01/17 Ondansetron Odt [Zofran Odt] 4 mg PO Q4PRN PRN #20 tab 07/01/17 Pantoprazole Sodium [Protonix 40mg 40 mg PO 07/01/17 (*)] Sertraline HCl [Zoloft 50mg (*)] 50 mg PO DAILY 07/01/17 Testosterone [Testopel] 75 mg [place] 07/01/17 levOFLOXACIN [levAQUIN (*)] 750 mg PO 07/01/17 morphINE SR [MS Contin/Oramorph SR 30 mg PO BID 07/01/17 30 mg (*)] oxyCODONE/APAP 5/325 [Percocet 1 tab PO 07/01/17 5/325 (*)] Medical Decision Making Procedures: IV normal saline with initial target of 2 L. Dilaudid IV, Zofran IV ED Course/Re-evaluation: Recheck at 1:45 p.m.. Patient is improved. Just finishing 1st L of saline. Repeat 1 more L of saline and 1 mg Dilaudid. I consulted discussed case with Dr. Vaughan who agrees with treatment plan. He will speak with Dr. Avila it is really guarding the potential problem taking oral Levaquin. Apparently the aspirate from the patient's back grew Pseudomonas so really he does need oral Levaquin or Cipro for management. Re-evaluation at 3:10 p.m.. Patient is stable. He has had 2 L saline. He has urinated small amount. He is taking oral fluids. He is given Oramorph SR 30 mg p.o. 4:10 p.m. Patient is stable. 3rd L saline given. He is not vomiting. Complains of continuing headache. He will be given Tylenol. Re-evaluation 5:30 p.m.. There has been no vomiting. His headache is better after the Tylenol. He is offered admission but would like to be treated as an outpatient. The patient, his , and I discussed laboratory evaluation, treatment plan including criteria for return and importance of follow-up and further evaluation. They expressed understanding and agreement Differential Diagnosis: I considered electrolyte abnormalities, infection, sepsis. Apparently this is untoward reaction to Levaquin. There may be some element of opioid withdrawal as he has not been taking his chronic pain medication - Data Points Laboratory Results: Laboratory Results 07/23/17 12:31 07/23/17 12:31 07/23/17 07/23/17 12:31 12:31 WBC 9.29 10^3/uL 10^3/uL (3.80-9.50) RBC 5.47 10^6/uL 10^6/uL (4.40-6.38) Hgb 16.4 g/dL g/dL (13.7-17.5) Hct 47.6 % % (40.0-51.0) MCV 87.0 fL fL (81.5-99.8) MCH 30.0 pg pg (27.9-34.1) MCHC 34.5 g/dL g/dL (32.4-36.7) RDW 14.4 % % (11.5-15.2) Plt Count 232 10^3/uL 10^3/uL (150-400) MPV 9.8 fL fL (8.7-11.7) Neut % (Auto) 83.2 % H % (39.3-74.2) Lymph % (Auto) 9.4 % L % (15.0-45.0) [place] % (Auto) 7.1 % % (4.5-13.0) Eos % (Auto) 0.0 % L % (0.6-7.6) Baso % (Auto) 0.1 % L % (0.3-1.7) Nucleat RBC Rel Count 0.0 % % (0.0-0.2) Absolute Neuts (auto) 7.73 10^3/uL H 10^3/uL (1.70-6.50) Absolute Lymphs (auto) 0.87 10^3/uL L 10^3/uL (1.00-3.00) Absolute Monos (auto) 0.66 10^3/uL 10^3/uL (0.30-0.80) Absolute Eos (auto) 0.00 10^3/uL L 10^3/uL (0.03-0.40) Absolute Basos (auto) 0.01 10^3/uL L 10^3/uL (0.02-0.10) Absolute Nucleated RBC 0.00 10^3/uL 10^3/uL (0-0.01) Immature Gran % 0.2 % % (0.0-1.1) Immature Gran # 0.02 10^3/uL 10^3/uL (0.00-0.10) Sodium 139 mEq/L mEq/L (135-145) Potassium 4.1 mEq/L mEq/L (3.5-5.2) Chloride 97 mEq/L mEq/L (97-110) Carbon Dioxide 26 mEq/l mEq/l (22-31) Anion Gap 16 mEq/L mEq/L (8-16) BUN 13 mg/dL mg/dL (7-23) Creatinine 0.6 mg/dL L mg/dL (0.7-1.3) Estimated GFR > 60 Glucose 107 mg/dL H mg/dL (70-100) Calcium 10.0 mg/dL mg/dL (8.5-10.4) Lipase 51 IU/L IU/L (23-300) Medications Given: Discontinued Medications Acetaminophen (Tylenol) 1,000 mg PO EDNOW ONE Stop: 07/23/17 16:25 Last Admin: 07/23/17 17:06 Dose: 1,000 mg Hydromorphone HCl (Dilaudid) 1 mg IVP EDNOW ONE Stop: 07/23/17 13:12 Last Admin: 07/23/17 13:19 Dose: 1 mg Hydromorphone HCl (Dilaudid) 1 mg IVP EDNOW ONE Stop: 07/23/17 13:52 Last Admin: 07/23/17 14:07 Dose: 1 mg Sodium Chloride (Ns) 1,000 mls @ 3,000 mls/hr IV ONCE ONE Stop: 07/23/17 12:56 Last Admin: 07/23/17 12:46 Dose: 1,000 mls Sodium Chloride (Ns) 1,000 mls @ 0 mls/hr IV EDNOW ONE; Wide Open PRN Reason: Protocol Stop: 07/23/17 13:12 Last Admin: 07/23/17 14:07 Dose: 1,000 mls Sodium Chloride (Ns) 1,000 mls @ 0 mls/hr IV EDNOW ONE; Wide Open PRN Reason: Protocol Stop: 07/23/17 15:14 Last Admin: 07/23/17 16:10 Dose: Not Given Morphine Sulfate (Ms Contin/Oramorph Sr) 30 mg PO ONCE ONE Stop: 07/23/17 14:52 Last Admin: 07/23/17 16:09 Dose: 30 mg Ondansetron HCl (Zofran) 4 mg IVP EDNOW ONE Stop: 07/23/17 12:46 Last Admin: 07/23/17 12:46 Dose: 4 mg Ondansetron HCl (Zofran) 4 mg IVP EDNOW ONE Stop: 07/23/17 13:12 Last Admin: 07/23/17 16:11 Dose: Not Given Departure - Departure Disposition: Home, Routine, Self-Care Clinical Impression: Dehydration Vomiting Qualifiers: Vomiting type: unspecified Vomiting Intractability: non-intractable Nausea presence: with nausea Qualified Code(s): R11.2 - Nausea with vomiting, unspecified Condition: Good Instructions: Acute Nausea and Vomiting (ED) Additional Instructions: Frequent, small sips fluids well nauseated. Gradual diet advancement. No Levaquin until discussed further with Dr. Millan. Return for fever worsening symptoms uncontrolled vomiting. Zofran as needed for nausea and vomiting. Keep your follow-up appointment with Referrals: ANJANA OSEGUERA [Other] - As per Instructions Maritza Millan MD [Medical Doctor] - As per Instructions
[2017-07-23] MEDS ORDERED: HYDROmorphONE/DILAUDID 2 MG/ML INJ IVP ONE ×2 (13:11→13:51)
[2017-07-23 13:16] LABS: PLATELET COUNT 232 10^3/uL (150-400)
[2017-07-23] MEDS ORDERED: morphINE SR 30 MG TAB PO ONE (14:51)
[2017-07-23] MEDS ORDERED: ACETAMINOPHEN 500 MG TAB PO ONE (16:24)
[2017-07-23 18:05] VITALS: BP 155/100
== END 2017-07-23 18:05 | disposition home or self-care (01) ==
DX: R11.2 Nausea with vomiting, unspecified (principal); E86.0 Dehydration; E86.9 Volume depletion, unspecified; Z87.891 Personal history of nicotine dependence; Z79.82 Long term (current) use of aspirin
CPT/HCPCS: 96374; 96375; 96376; 99284; J1170; J2405

== ENCOUNTER → 2017-08-27 | Outpatient (CLI) | payer OTHER, BC ==
[~2017-08-27] MED LIST: IOPAMIDOL (ISOVUE-M 200) 20 ML VIAL ONE; LIDOCAINE 1% 300 MG/30 ML SDV ONE
[2017-08-27 09:33] LABS: INR 0.99 (0.83-1.16); PROTIME(PATIENT) 13.3 SEC (12.0-15.0)
== END ==
LOC: FIMAGING 08:51
PROVIDERS: ATTEND Neurological Surgery
DX: M43.26 Fusion of spine, lumbar region (principal); M54.5 Low back pain; Z53.09 Procedure and treatment not carried out because of other contraindication
CPT/HCPCS: Q9966

== ENCOUNTER 2017-08-29 13:57 | Emergency (ER) | payer OTHER, BC ==
--- NOTE | 2017-08-29 15:06 | EDPHY ---
H & P Stated Complaint: NV Time Seen by Provider: 08/29/17 14:42 HPI/ROS: CHIEF COMPLAINT: Vomiting, back pain HISTORY OF PRESENT ILLNESS: 67-year-old male with diabetes and lumbar fusion presents with persistent vomiting. In September 2016 he underwent lumbar fusion, that was complicated by diskitis and osteomyelitis. He was admitted in March 2017 for IV antibiotics. Over the past year, he has had recurrent episodes of vomiting. He now has persistent vomiting and is unable to tolerate oral fluids or food. He is also unable to tolerate usual pain medications, consisting of morphine and oxycodone. Zofran without relief. He was on Levaquin until 4 weeks ago. Levaquin was apparently stopped because of persistent vomiting. REVIEW OF SYSTEMS: complete 10 point ROS negative except at noted in the HPI - Personal History Current Tetanus Diphtheria and Acellular Pertussis (TDAP): Yes Tetanus Vaccine Date: < 10 years - Medical/Surgical History Hx Asthma: No Hx Chronic Respiratory Disease: No Hx Diabetes: Yes Hx Cardiac Disease: No Hx Renal Disease: No Hx Cirrhosis: No Hx Alcoholism: No Hx HIV/AIDS: No Hx Splenectomy or Spleen Trauma: No Other PMH: Lumbar fusion, diskitis/osteomyelitis, cataracts, turp, cholecystectomy - Social History Smoking Status: Former smoker - Physical Exam Exam: General Appearance: Alert, pleasant, pale Eyes: Pupils equal and round, no conjunctival pallor or injection ENT, Mouth: Mucous membranes dry Neck: Normal inspection Respiratory: Lungs are clear to auscultation Cardiovascular: Regular rate and rhythm Gastrointestinal: Abdomen is soft and nontender Back: well-healed midline lumbar scar, without erythema or warmth Neurological: A&O, nonfocal exam Skin: Warm and dry Extremities: Normal inspection Psychiatric: Mood and affect normal Constitutional: Initial Vital Signs Temperature (C) 36.9 C 08/29/17 14:05 Heart Rate 94 08/29/17 14:05 Respiratory Rate 16 08/29/17 14:05 Blood Pressure 124/89 H 08/29/17 14:05 O2 Sat (%) 92 08/29/17 14:05 O2 Delivery Mode Room Air Allergies/Adverse Reactions: Penicillins Allergy (Intermediate, Verified 08/29/17 14:04) Hives Home Medications: Medication Instructions Recorded Aspirin 81mg (*) 08/29/17 Azelastine 08/29/17 Besylate 08/29/17 Desonide 08/29/17 Etodolac 08/29/17 Furosemide 08/29/17 Gabapentin 08/29/17 Lipitor 08/29/17 Melatonin 08/29/17 Metoclopramide [Reglan 10 mg tab 10 mg PO Q6H PRN #10 tab 08/29/17 (*)] Ms Contin 08/29/17 Percocet 08/29/17 Promethazine HCl [Phenergan Rectal] 25 mg IN Q6 PRN #10 suppr 08/29/17 Protonix 08/29/17 Robaxin-750 08/29/17 Testopel 08/29/17 Triamcinolone 0.025% 08/29/17 Tylenol 08/29/17 Voltaren 08/29/17 Zoloft 08/29/17 Medical Decision Making ED Course/Re-evaluation: Dr. Millan consulted at patient request. Dr. Millan does not suspect recurrent infection. I will give the patient 1 L normal saline, Reglan 10 mg IV and Zofran 4 mg IV. Option for admission versus discharge home discussed with the patient and his . Prefers to go home. 5:15 p.m.-patient tolerated oral fluids well. Feels much better. Would like to go home. Prescriptions for Reglan and Phenergan given. Will follow up with Dr. Zamudio in the office. Differential Diagnosis: Differential diagnosis includes though it is not limited to appendicitis, cholecystitis, diverticulitis, pyelonephritis, bowel perforation, small bowel obstruction. - Data Points Laboratory Results: Laboratory Results 08/29/17 14:24 08/29/17 14:24 08/29/17 08/29/17 14:24 14:24 WBC 6.79 10^3/uL 10^3/uL (3.80-9.50) RBC 5.24 10^6/uL 10^6/uL (4.40-6.38) Hgb 15.7 g/dL g/dL (13.7-17.5) Hct 47.1 % % (40.0-51.0) MCV 89.9 fL fL (81.5-99.8) MCH 30.0 pg pg (27.9-34.1) MCHC 33.3 g/dL g/dL (32.4-36.7) RDW 14.2 % % (11.5-15.2) Plt Count 218 10^3/uL 10^3/uL (150-400) MPV 9.8 fL fL (8.7-11.7) Neut % (Auto) 76.2 % H % (39.3-74.2) Lymph % (Auto) 14.4 % L % (15.0-45.0) [place] % (Auto) 8.1 % % (4.5-13.0) Eos % (Auto) 0.7 % % (0.6-7.6) Baso % (Auto) 0.3 % % (0.3-1.7) Nucleat RBC Rel Count 0.0 % % (0.0-0.2) Absolute Neuts (auto) 5.17 10^3/uL 10^3/uL (1.70-6.50) Absolute Lymphs (auto) 0.98 10^3/uL L 10^3/uL (1.00-3.00) Absolute Monos (auto) 0.55 10^3/uL 10^3/uL (0.30-0.80) Absolute Eos (auto) 0.05 10^3/uL 10^3/uL (0.03-0.40) Absolute Basos (auto) 0.02 10^3/uL 10^3/uL (0.02-0.10) Absolute Nucleated RBC 0.00 10^3/uL 10^3/uL (0-0.01) Immature Gran % 0.3 % % (0.0-1.1) Immature Gran # 0.02 10^3/uL 10^3/uL (0.00-0.10) Sodium 140 mEq/L mEq/L (135-145) Potassium 4.2 mEq/L mEq/L (3.5-5.2) Chloride 102 mEq/L mEq/L (97-110) Carbon Dioxide 27 mEq/l mEq/l (22-31) Anion Gap 11 mEq/L mEq/L (8-16) BUN 13 mg/dL mg/dL (7-23) Creatinine 0.7 mg/dL mg/dL (0.7-1.3) Estimated GFR > 60 Glucose 99 mg/dL mg/dL (70-100) Calcium 9.8 mg/dL mg/dL (8.5-10.4) Total Bilirubin 1.0 mg/dL mg/dL (0.1-1.4) Conjugated Bilirubin 0.5 mg/dL mg/dL (0.0-0.5) Unconjugated Bilirubin 0.5 mg/dL mg/dL (0.0-1.1) AST 29 IU/L IU/L (17-59) ALT 43 IU/L IU/L (21-72) Alkaline Phosphatase 96 IU/L IU/L (38-126) Total Protein 6.9 g/dL g/dL (6.3-8.2) Albumin 4.2 g/dL g/dL (3.5-5.0) Lipase 40 IU/L IU/L (23-300) Medications Given: Discontinued Medications Hydromorphone HCl (Dilaudid) 1 mg IVP EDNOW ONE Stop: 08/29/17 15:08 Last Admin: 08/29/17 15:26 Dose: 1 mg Metoclopramide HCl (Reglan Injection) 10 mg IVP EDNOW ONE Stop: 08/29/17 15:08 Last Admin: 08/29/17 15:20 Dose: 10 mg Ondansetron HCl (Zofran) 4 mg IVP EDNOW ONE Stop: 08/29/17 15:08 Last Admin: 08/29/17 15:17 Dose: 4 mg Departure - Departure Clinical Impression: Vomiting Qualifiers: Vomiting type: unspecified Vomiting Intractability: intractable Nausea presence : with nausea Qualified Code(s): R11.2 - Nausea with vomiting, unspecified Condition: Good Instructions: Acute Nausea and Vomiting (ED) Referrals: ANGIE LANCASTER [Other] - As per Instructions Neo Zamudio MD, FACG [Medical Doctor] - As per Instructions (Call to make an appointment.) Prescriptions: Metoclopramide [Reglan 10 mg tab (*)] 10 mg PO Q6H PRN #10 tab PRN Reason: Nausea/Vomiting Promethazine HCl [Phenergan Rectal] 25 mg IN Q6 PRN #10 suppr PRN Reason: vomiting
[2017-08-29] MEDS ORDERED: METOCLOPRAMIDE 10 MG/2 ML VIAL IVP ONE (15:07)
[2017-08-29] MEDS ORDERED: ONDANSETRON 4 MG/2 ML VIAL IVP ONE (15:07)
[2017-08-29] MEDS ORDERED: HYDROmorphONE/DILAUDID 2 MG/ML INJ IVP ONE (15:07)
[2017-08-29 15:14] LABS: PLATELET COUNT 218 10^3/uL (150-400)
[2017-08-29 17:31] VITALS: BP 167/88
== END 2017-08-29 17:31 | disposition home or self-care (01) ==
DX: R11.2 Nausea with vomiting, unspecified (principal); E11.9 Type 2 diabetes mellitus without complications; Z79.82 Long term (current) use of aspirin; Z87.891 Personal history of nicotine dependence
CPT/HCPCS: 96374; 96375; 99284; J1170; J2405; J2765

== ENCOUNTER → 2017-11-09 | Outpatient (CLI) | payer OTHER, BC ==
[~2017-11-09] MED LIST changes: +GADOBUTROL 10 ML VIAL IVP ONE; -IOPAMIDOL (ISOVUE-M 200) 20 ML VIAL ONE; -LIDOCAINE 1% 300 MG/30 ML SDV ONE
== END ==
LOC: FIMAGING 12:03
PROVIDERS: ATTEND Internal Medicine Infectious Disease
DX: M51.36 Other intervertebral disc degeneration, lumbar region (principal); M51.37 Other intervertebral disc degeneration, lumbosacral region; M99.73 Connective tissue and disc stenosis of intervertebral foramina of lumbar region; T81.4XXA Infection following a procedure, initial encounter; A49.8 Other bacterial infections of unspecified site
CPT/HCPCS: 72158; A9585; 82565-PO